=== PATIENT | female | born 1975 | race Caucasian/White ===

== ENCOUNTER 2019-09-10 13:15 | Emergency (ER) | payer MEDICARE, MEDICAID, SELFPAY ==
--- NOTE | ~2019-09-10 | XR_ITS ---
XR knee RT 3V 09/10/2019 14:48 INDICATION: Right knee pain PROCEDURE: 4 views right knee COMPARISON: 09/20/2017 FINDINGS: Fracture, dislocation or subluxation is not identified. No significant joint effusion. Ther e is irregularity to the patellar tendon with adjacent soft tissue swelling. No foreign bodies are i dentified. IMPRESSION: 1: Possible patellar tendon disruption. Recommend clinical correlation and follow-up examination with MRI as clinically indicated. Reviewed, dictated and finalized at location A. T SYSTEM DIRECTOR IMPRESSION: 1: Possible patellar tendon disruption. Recommend clinical correlation and foll ow-up examination with MRI as clinically indicated.
[2019-09-10 13:30] VITALS: BP 109/84; PULSE 101; RESP 18; TEMP 36.8; O2SAT 98
--- NOTE | 2019-09-10 14:31 | ED.LOWEXIN ---
HPI - Extremity Injury (Lower) General Chief Complaint: Extremity Injury, Lower Stated Complaint: Right Knee Pain Time Seen by Provider: 09/10/19 14:32 Source: patient Mode of arrival: ambulatory Limitations: no limitations History of Present Illness HPI Narrative: Tameka Nash is a 44 yo female with a PMH of HTN, breast cancer, high cholesterol, RENU, bipolar, who comes here with right knee pain and swelling on her right lateral patella. States is unknown if there is an injury; working many hours last week and was on her feet a lot. States she started having pain about 3 days ago Related Data Home Medications Medication Instructions Recorded Confirmed aripiprazole mg 09/10/19 baclofen mg 09/10/19 clonazepam 09/10/19 gabapentin 09/10/19 hydrochlorothiazide 09/10/19 hydrocodone-acetaminophen tablet 09/10/19 lamotrigine 09/10/19 montelukast mg 09/10/19 oxybutynin chloride mg PO 09/10/19 pantoprazole PO 09/10/19 Allergies Allergy/AdvReac Type Severity Reaction Status Date / Time codeine Allergy Mild Itching Verified 09/10/19 13:20 buspirone Allergy Unknown Hives Verified 09/10/19 13:42 egg Allergy Unknown Hives Verified 09/10/19 13:42 escitalopram Allergy Unknown Hives Verified 09/10/19 13:42 furosemide Allergy Unknown Hives Verified 09/10/19 13:42 morphine Allergy Unknown Hives Verified 09/10/19 13:42 strawberry Allergy Unknown Hives Verified 09/10/19 13:42 venlafaxine Allergy Unknown Hives Verified 09/10/19 13:42 bupropion AdvReac Unknown Vomiting Verified 09/10/19 13:42 Review of Systems Review of Systems: Narrative: CONSTITUTIONAL: Denies fever, chills, sweats. EYES: Denies visual changes, redness, discharge. ENT: Denies rhinorrhea, congestion, sore throat, otalgia. CARDIOVASCULAR: Denies chest pain, palpitations, edema. RESPIRATORY: Denies dyspnea, wheezing, cough GASTROINTESTINAL: Denies abdominal pain, nausea, vomiting, diarrhea. GENITOURINARY: Denies dysuria, hematuria, abnormal discharge SKIN: Denies rash or itching. NEUROLOGIC: Denies numbness, or focal weakness. PSYCHIATRIC: Denies anxiety or depression. right knee pain PMFSH Past Medical History Medical History Breast cancer Family History Family History Other Breast cancer Social History Social History (Updated 09/10/19 @ 14:39 by Melisa Wolff CNP) Smoking status: Current every day smoker Alcohol intake: current Gender identity (if verbalized by the patient): Female Exam Narrative: Exam Narrative: GENERAL: This is a well-nourished, well-developed patient, in mild distress. HEAD: normocephalic, atraumatic. EYES: Sclera clear/white. Vision is grossly intact. EARS: External ears normal, Hearing grossly intact. NOSE: External nose normal with no obvious nasal discharge, nares without redness, no rhinorrhea. THROAT: Mucous membranes moist, posterior pharynx clear. NECK: Neck supple, non-tender without lymphadenopathy, masses or thyromegaly. CARDIOVASCULAR: Regular rate and rhythm without murmurs, gallops, or rubs. RESPIRATORY: Coarse to auscultation. Breath sounds equal bilaterally. No wheezes, rales, or rhonchi. GASTROINTESTINAL: Abdomen soft, non-tender, nondistended. Bowel sounds are active. No hepato-splenomegaly, or palpable masses. No guarding. SKIN: warm, intact with no suspicious lesions or rash, good texture and turgor. NEURO: awake, alert, and oriented to person, place and time. There were no obvious focal neurologic abnormalities. EXTREMITIES: Normal range of motion. No edema. Unable to walk w R knee pain - flex to 90 degrees, not fully extend BACK: Nontender without deformity or crepitance. Course Course Emergency Course: Xray R knee- possible patellar rupture knee immobilizer, follow up with orthopedics Vital Signs Vital signs: Vital Signs Temperature 98.2 F 09/10/19 13:30 Pulse R
== END 2019-09-10 15:14 | disposition home or self-care (01) ==
PROVIDERS: Emergency Provider Nurse Practitioner; PCP Nurse Practitioner Family
DX: M25.561 Pain in right knee (principal); F17.200 Nicotine dependence, unspecified, uncomplicated; Z85.3 Personal history of malignant neoplasm of breast; I10 Essential (primary) hypertension; E78.00 Pure hypercholesterolemia, unspecified; F31.9 Bipolar disorder, unspecified
CPT/HCPCS: 73562; 99213; G0463; L1830

== ENCOUNTER 2020-06-19 06:54 | Outpatient (NON) | payer MEDICARE, MEDICAID, SELFPAY ==
[2020-06-19 23:36] LABS: SARS-CoV-2 RNA PCR Positive
== END 2020-06-19 06:55 ==
PROVIDERS: Visit Provider Student in an Organized Health Care Education/Training Program
DX: U07.1 COVID-19 (principal)
CPT/HCPCS: 87635; C9803; U0003

== ENCOUNTER → 2020-10-13 11:33 | Outpatient (CLI) | payer MEDICARE, MEDICAID, SELFPAY ==
--- NOTE | ~2020-10-13 | MR_ITS ---
EXAMINATION: MR lumbar spine wo con EXAM DATE: 10/13/2020 12:16 INDICATION: chronic bilateral low back pain lbp, mane arm tremors right leg numbness x1mo, no trauma . TECHNIQUE: Multi-sequential, multiplanar MR images of the lumbar spine were obtained without contrast . Sagittal T1, T2, T2 fat saturation images. Axial T2 weighted images. There is no prior study for comparison. FINDINGS: Small hemangioma within the L3 vertebral body. The vertebral body marrow is otherwise erasmo l in signal intensity. The conus medullaris terminates at the T12-L1 level and has normal signal inte nsity and morphology. The vertebral bodies are aligned in the AP dimension. Vertebral body and disc heights are well-maintained. There are no suspicious marrow signal abnormalities. Level by level evaluation: T12-L1: Disc does not extend beyond the endplate margin. Facet arthropathy: None. Neural foraminal stenosis: No stenosis. Central canal stenosis: No stenosis. L1-L2: Disc does not extend beyond the endplate margin. Facet arthropathy: Mild. Neural foraminal stenosis: No stenosis. Central canal stenosis: No stenosis. L2-L3: Disc does not extend beyond the endplate margin. Facet arthropathy: Mild to moderate. Neural foraminal stenosis: No stenosis. Central canal stenosis: No stenosis. L3-L4: Disc does not extend beyond the endplate margin. Facet arthropathy: Mild to moderate. Neural foraminal stenosis: No stenosis. Central canal stenosis: No stenosis. L4-L5: Disc does not extend beyond the endplate margin. Facet arthropathy: Mild to moderate. Neural foraminal stenosis: No stenosis. Central canal stenosis: No stenosis. L5-S1: Disc does not extend beyond the endplate margin. Facet arthropathy: Moderate left, mild to moderate right. Neural foraminal stenosis: No stenosis. Central canal stenosis: No stenosis. IMPRESSION: L5-S1 moderate left facet arthropathy, mild to moderate at the other levels. No stenosis. Reviewed, dictated and finalized at location A. IMPRESSION: L5-S1 moderate left facet arthropathy, mild to moderate at the othe r levels. No stenosis.
== END ==
PROVIDERS: Visit Provider Nurse Practitioner Family
DX: M54.42 Lumbago with sciatica, left side (principal); M54.41 Lumbago with sciatica, right side; G89.29 Other chronic pain
CPT/HCPCS: 72148

== ENCOUNTER 2024-10-12 13:34 | Outpatient (CLI) | payer MEDICARE, MEDICAID, SELFPAY ==
--- NOTE | ~2024-10-12 | US_ITS ---
EXAMINATION: US breast LT limited HISTORY: 49-year-old woman with both a family and personal history of breast cancer, post bilateral m astectomy in 2019 with implant reconstruction presents with left anterior lateral chest wall pain. High resolution limited left anterior lateral chest wall ultrasound was performed. COMPARISON: None. No imaging following bilateral mastectomy with implant reconstruction is available for comparison. FINDINGS: ULTRASOUND: Within the left anterior lateral chest wall, in the area of patient's discomfort (at the 4 to 6:00 po sition of the left breast, approximately 11 cm from the nipple) ultrasound demonstrates benign fibrog landular elements without a cystic or solid lesion of concern. IMPRESSION: No sonographic evidence to suggest the presence of recurrent or residual malignancy. BI-RADS Category 2: Benign finding(s). Cross-sectional imaging (preferably with contrast enhanced MRI) may be performed for further investig ation, if the patient is clinically able. Reviewed, dictated and finalized at location A. IMPRESSION: No sonographic evidence to suggest the presence of recurrent or residual malign cruzito. BI-RADS Category 2: Benign finding(s). Cross-sectional imaging (preferably with contrast enhanced MRI) may be performe d for further investigation, if the patient is clinically able.
--- OUTSIDE RECORDS SUMMARY | 2024-10-12 14:40 | XMS_ITS ---
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 none ATTENTION: good ORIENTATION: yes, person, place a nd time AFFECT: appropriate, full ra nge MOOD: sad, overwhelmed, st ressed, dysthymic SPEECH: clear, normal/R/V/R INSIGHT: fair JUDGEMENT: fair THOUGHT PROCESS: intact THOUGHT CONTENT: unremarkable PERCEPTUAL DISORDERS: no perceptual diso rder noted CURRENT SUICIDALITY: not presently (stro ng hx of SI and attempts though nothing since spring 2021) CURRENT HOMICIDALITY: none
--- OUTSIDE RECORDS SUMMARY | 2024-10-12 14:40 | XMS_ITS | Encounter Summary ---
Author Organization [facility] Address [address] [place] [address] Care Team Providers Care Institutional Research Director Name Role Phone Barbara Jackman CAREER TECHNICAL COUNSELOR Primary Care Provider [phone] Rachna Dumont APRN Unavailable Unavailab Patsy Gomez MD Unavailable [phone] Doni Fields MD Unavailable [phone] Reason for Visit * Reason Comments Lab (SCAN) Encounter Details Date Type Department Care Team (Latest Contact Info) Description 09/29/2024 Scan HEALTH INFO [facility] Scanned, [facility] Lab (SCAN) Social History Tobacco Use Types Packs/Day Years Used Date Smoking Tobacco: Former Cigarettes 1 36 1 988 - 2023 Smokeless Tobacco: Never Alcohol Use Standard Drinks/Week Comments Not Currently 0 (1 standard drink = 0.6 oz pur e alcohol) on average 3 drinks a year AUDIT-C Answer Date Recorded Frequency of Alcohol Consumption Monthly or less 06/07/2018 Average Number of Drinks Not on file 018 Frequency of Binge Drinking Not on file 05/20 PHQ-2 Answer Date Recorded Patient Health Questionnaire-2 Score 2 08/19/2024 Comments No Sex and Gender Information Value Date Recorded Sex Assigned at Female 11/14/2021 10:53 AM CDT Legal Sex Female 5:39 PM CDT Gender Identity Female 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 Sexual Orientation Straight 09/24/2021 11 :16 AM WOODWORKING MACHINE OPERATOR documented as of this encounter Plan of Treatment Not on file documented as of this encounter Procedures Procedure Name Priority Date/Time Associated Diagnosis Comments OUTSIDE LAB (SCAN ORDER) 09/29/2024 documented in this encounter Results * OUTSIDE LAB (SCAN ORDER) (09/29/2024) 09/29/2024 us Doc [facility] Scanned SCANNING Final Resu lt documented in this encounter Visit Diagnoses Not on filedocumented in this encounter Additional Health Concerns Assessment Noted Time PHQ-9 Depression Total Score: 14 025 11:33 AM WOODWORKING MACHINE OPERATOR documented as of this encounter Care Teams Institutional Research Director Relationship Specialty Start Date End Date Barbara Jackman FNP [address] [place] [address] PCP - General 12/04/16 Rachna Dumont, BLOCK INSPECTOR [address] [place] [address] Nurse Practitioner NURSE PRACTITIONER 05/10/19 Patsy Vogt MD [address] [place] [id number] Referring Physician RADIATION ONCOLOGY 05/10/19 Doni Fields MD [address] [place] [id number] ONCOLOGY 05/10/19 documented as of this encounter
--- OUTSIDE RECORDS SUMMARY | 2024-10-12 14:40 | XMS_ITS ---
Author Organization [facility] Address [address] [place] [address] Care Team Providers Care Manager Spanish Name Role Phone Piter Gonsales Primary Care Provider REASON FOR VISIT refill Social History Sex Assigned At : Social History Observation Description Sex Assigned At Female Encounters Encounter Location Date Provider Diagnosis [address] [place] [address] 09/01/2024 Piter Gonsales Plan Of Treatment No Information Progress Notes * Tameka MACIASDOB:1975 (49 yo F)Acc No.[id number]:09/01/2024 Patient: Tameka MEZA :1975 A ge:49 Y S ex:Female Address:[address] [place] [address] A, [place], [address] * true * Date: Generated for Mine engel/Nika/eTransmitting on: 0 10/12/2024 02:40 PM CDT
--- OUTSIDE RECORDS SUMMARY | 2024-10-12 14:40 | XMS_ITS | Clinical Summary ---
Author Organization [facility] Address [facility] [place] [address] Care Team Providers Care Ornamenter Hand Name Role Phone Barbara Jackman NP Primary Care Provider [phone] Allergies Active Allergy Reactions Criticality Noted Date Comments Bupropion Rash Medium 05/27/2016 Buspirone Rash,Nausea only Medium 05/27/2016 Codeine Rash Medium 10/17/2019 Escitalopram Hives Medium 05/27/2016 Furosemide Other (See comments) Medium 05/27/2016 Water retention Latex Rash Medium 10/25/2018 Mirtazapine Rash Medium 07/22/2017 Morphine Swelling,Urticaria,V omit ing Medium 05/27/2016 Quetiapine Hives,Other (See comments),Urticaria Medium 07/22/2017 Excessive sleepiness Venlafaxine Rash,Urticaria Medium 05/27/2016 Medications clonazePAM (KlonoPIN) 0.5 mg tabletIndications: Teresa associated with Bipolar Disorder, Adjunct Take 0.25 mg by mouth daily before breakfast 9 Active dicyclomine (BENTYL) 20 mg tablet Take 20 mg by mouth 4 (four) times a day as needed (ibs) 9 Active baclofen (LIORESAL) 20 mg tabletIndications: Muscle Spasticity of Spinal Origin Take 20 mg by mouth 3 (three) times a day 9 Active fluticasone propionate (FLONASE) 50 mcg/actuation nasal spray Administer 2 sprays into affected nostril(s) as needed for rhinitis Active gabapentin (NEURONTIN) 300 mg capsuleIndications :Neuropathic Pain Take 300 mg by mouth 3 (three) times a day 3 9 Active lamoTRIgine (LaMICtal) 200 mg tabletIndications: Bipolar Disorder in Remission Take 200 mg by mouth 2 (two) times a day [address] (PROTONIX) 40 mg EC tabletIndications: Treatment of Non-Bleeding Gastric Disorder Take 40 mg by mouth every morning 9 Active SUMAtriptan (IMITREX) 100 mg tabletIndications: Migraine Take 100 mg by mouth once as needed for migraine 9 Active varenicline (CHANTIX STARTING MONTH BOX) 0.5 mg (11)- 1 mg (42) tabletIndications: Smoking Cessation Take 0.5 mg by mouth 2 (two) times a day 9 Active albuterol HFA (VENTOLIN HFA) 90 mcg/actuation inhaler Inhale 1 puff every 6 (six) hours as needed for wheezing or shortness of breath 9 Active ARIPiprazole (ABILIFY) 15 mg tabletIndications: Bipolar Disorder in Remission Take 15 mg by mouth nightly Active ibuprofen (ADVIL,MOTRIN) 800 mg tablet Take 800 mg by mouth every 6 (six) hours as needed for pain Active atorvastatin (LIPITOR) 10 mg tabletIndications: hyperlipidemia Take 10 mg by mouth nightly 9 Active cetirizine (ZyrTEC) 10 mg tabletIndications: Allergic Conjunctivitis,All ergic Rhinitis Take 10 mg by mouth every morning Active naloxone (Narcan) 4 mg/actuation spray,non-aerosol Administer 1 spray into affected nostril(s) as needed for opioid reversal 9 Active oxybutynin XL (DITROPAN-XL) 10 mg 24 hr tabletIndications: Urinary Urge Incontinence Take 10 mg by mouth nightly 0 Active ARIPiprazole (ABILIFY) 5 mg tabletIndications: Bipolar Disorder in Remission Take 5 mg by mouth daily before breakfast 0 Active hydroCHLOROthiazid e (HYDRODIURIL) 12.5 mg tabletIndications: hypertension Take 12.5 mg by mouth every morning 9 Active ondansetron ODT (ZOFRAN-ODT) 4 mg disintegrating tablet Take 4 mg by mouth every 8 (eight) hours as needed for nausea 9 Active fluticasone furoate-vilanteroL (Breo Ellipta) 200-25 mcg/dose diskus inhalerIndications :Maintenance Therapy for Asthma Inhale 1 puff every morning Rinse mouth with water after use. Do not swallow. Active montelukast (SINGULAIR) 10 mg tabletIndications: Maintenance Therapy for Asthma Take 10 mg by mouth nightly 0 Active clonazePAM (KlonoPIN) 0.5 mg tablet Take 0.5 mg by mouth nightly Active clonazePAM (KlonoPIN) 0.25 mg disintegrating tablet Take 0.25 mg by mouth daily as needed for anxiety Active oxyCODONE (ROXICODONE) 5 mg immediate release tabletIndications: Pain Take 1 tablet (5 mg total) by mouth every 4 (four) hours as needed for pain 15 tablet 0 Active docusate sodium (COLACE) 100 mg capsuleIndications :constipation Take 1 capsule (100 mg total) by mouth 2 (two) times a day 60 capsule 0 Active HYDROcodone-acetam inophen (NORCO) 10-325 mg per tablet Take 1 tablet by mouth every 6 (six) hours as needed 0 Active methylPREDNISolone (MEDROL DOSEPACK) 4 mg Dosepack 0 Active orphenadrine ER (NORFLEX) 100 mg 12 hr tablet Take 100 mg by mouth 2 (two) times a day as needed 0 Active TiZANidine (ZANAFLEX) 4 mg capsule 0 Active lurasidone (LATUDA) 40 mg tablet Take 40 mg by mouth 0 Active Latuda 40 mg tablet 0 Active nitrofurantoin monohydrate (MACROBID) 100 mg capsule 0 Active mupirocin (BACTROBAN) 2 % ointment Apply topically 2 (two) times a day 22 g 0 Active azithromycin (ZITHROMAX) 250 mg tablet 0 Active hydrOXYzine (ATARAX) 25 mg tablet 1 Active nicotine (NICODERM CQ) [address] 14 mg on the skin daily 1 Active nicotine polacrilex (NICORETTE) 2 mg gum Take 2 mg by mouth as needed 1 Active prazosin (MINIPRESS) 2 mg capsule Take 2 mg by mouth nightly 1 Active prazosin (MINIPRESS) 2 mg capsule 1 Active predniSONE (DELTASONE) 20 mg tablet Take two tablets once daily for 4 days and one tablet once daily for 3 days 1 Active predniSONE (DELTASONE) 20 mg tablet 1 Active Active Problems Problem Noted Date Diagnosed Date Acute cystitis without hematuria 04/06/2020 Chronic midline low back pain without sciatica 0 04/06/2020 Family history of diabetes mellitus 04/06/2020 Prediabetes 04/06/2020 Osteochondral lesion 02/28/2020 Morbid (severe) obesity due to excess calories 0 01/03/2020 History of breast cancer 01/02/2020 Overview (01/02/2020): Added automatically from request for surgery [id number] Cyst of right breast 09/23/2019 Overview (09/23/2019): Added automatically from request for surgery [id number] Dysuria 07/13/2019 Urinary problem 07/13/2019 Numbness of upper extremity 07/13/2019 Allergic rhinitis 05/25/2019 Cancer associated pain 05/25/2019 Abnormal breast biopsy 05/03/2019 Ductal carcinoma in situ (DCIS) of right breast 05/02/2019 Malignant neoplasm of breast 04/19/2019 Overview (11/22/2019): says she will have surgery then radiation treatments says she will have surgery then radiation treatments says she will have surgery then radiation treatments Abnormal mammogram of right breast 03/09/2019 Boil of left foot 03/09/2019 Vitamin B 12 deficiency 03/09/2019 Encounter for smoking cessation counseling 01/06 Female bladder prolapse 01/06/2019 Bipolar disorder 10/14/2018 Fracture of unspecified tars al bone(s) of right foot, initial encounter for closed fracture 10/05/2018 Urge incontinence of urine 10/05/2018 High blood pressure 06/07/2018 Borderline hypertension 06/07/2018 Boils 05/11/2018 Adult BMI 33.0-33.9 kg/sq m 03/28/2018 Fracture of third metatarsal bone of left foot 0 03/24/2018 Right foot pain 03/23/2018 Hypertriglyceridemia 01/28/2018 History of hysterectomy 01/19/2018 Vaginal bleeding, abnormal 01/19/2018 Panic attack as reaction to stress 12/29/2017 Environmental and seasonal allergies 11/24/2017 Low vitamin D level 11/24/2017 Hearing decreased, unspecified laterality 2017 Wrist pain 07/21/2017 Bulging of cervical intervertebral disc 07/03/20 17 Tear of meniscus of right knee 06/23/2017 Right ankle injury 06/23/2017 Anxiety 03/31/2017 Chronic nausea 02/26/2017 Chronic vomiting 02/26/2017 Osteoarthrosis 01/01/2017 Neck pain 12/22/2016 Migraines 11/28/2016 Nicotine dependence 07/29/2016 GERD (gastroesophageal reflux disease) 6 COPD (chronic obstructive pulmonary disease) 02/2016 Asthma 05/27/2016 Inflammatory liver disease 05/27/2016 Sleep disorder 05/27/2016 Immunizations Immunization Administration Dates Next Due Influenza, Quadrivalent, Ingrid l Culture-based MDCK, Preservative Free, Antibiotic Free, Intramuscular 05/04/2019 Influenza, Quadrivalent, Spl it, Preservative Free, Intramuscular 04/06/2020 Influenza, Unspecified 04/29/2018,05/08/2017, Pneumococcal Conjugate PCV 13 06/07/2018 Tdap 06/07/2018 Surgical History Surgery Date Site/Laterality Comments HYSTERECTOMY 07/20/2005 - 07/19/2006 APPENDECTOMY 07/20/2005 - 07/19/2006 CHOLECYSTECTOMY 07/20/2005 - 07/19/2006 CYST REMOVAL 07/20/2003 - 07/19/2004 COLONOSCOPY 07/20/2017 - 07/19/2018 BREAST LUMPECTOMY 07/20/2018 - 07/19/2019 Right DCIS; re-excision as well BREAST BIOPSY 07/20/2018 - 07/19/2019 Right DCIS BREAST LUMPECTOMY 07/20/2018 - 07/19/2019 Right Medical History Medical History Date Comments Anxiety Depression Asthma Arthritis Overweight Hypertension KIMBER (obstructive sleep apnea) GERD (gastroesophageal reflux disease) Chronic nausea 02/26/2017 Family History Medical History Relation Name Comments Prostate cancer Father Breast cancer Mother Colon cancer Paternal Grandmother Anesthesia problems Neg Hx Relation Name Status Comments Father Mother Paternal Grandmother Social History Tobacco Use Types Packs/Day Years Used Date Smoking Tobacco: Every Day Cigarettes 0.5 32.2 Started: 1992 Smokeless Tobacco: Never Alcohol Use Standard Drinks/Week Comments Not Currently 0 (1 standard drink = 0.6 oz pur e alcohol) rare Comments No Sex and Gender Information Value Date Recorded Sex Assigned at Not on file 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 Gender Identity Not on file Sexual Orientation Not on file Obstetrics History Last Filed Vital Signs Vital Sign Reading Time Taken Comments Blood Pressure 131/87 01/30/2020 10:50 AM CDT Pulse 95 01/30/2020 10:50 AM CDT Temperature 36.2 C (97.2 F) 01/30/2020 10:00 AM CDT Respiratory Rate 15 01/30/2020 10:50 AM CDT Oxygen Saturation 95% 01/30/2020 10:50 AM CDT Inhaled Oxygen Concentration - - Weight 119.7 kg (264 lb) 01/17/2020 4:30 PM CDT Height 170.2 cm (5' 7 ) 01/17/2020 4:30 PM CDT Body Mass Index 41.35 01/17/2020 4:30 PM CDT Plan of Treatment Health Maintenance Due Date Last Done Comments Breast Cancer Screening-Mammogram 1975 Colon Cancer Screening-Colonoscopy 1975 Depression Screening 1975 Hepatitis C Screening 1975 Hepatitis B Screening 1993 Regular Well Visit/Exam 18-64 1993 Pneumococcal vaccine <65 (2 of 2 - PPSV23) 08/02/2018 06/07/2018 Covid-19 Vaccine (3 - 2023-2 5 season) 2024 11/12/2020, 10/22/2020 Influenza Vaccine (#1) 2024 , 05/27/2022, 09/27/2021, Additional history exists DTaP/Tdap/Td Vaccine (2 - Td or Tdap) 06/07/2028 06/07/2018 Medical Devices Implanted Type Area Quantitative Analyst Device Identifier Shelf Expiration Date Model / Serial / Lot [employer] [id number] Alloderm Select 16x6cm Allograft Regenerative Thk.4-1.6mm Medium - [id number] - [id number] Implanted:Qty: 1 on 10/17/2019 by Maxwell Kelsey MD at [facility] Left: Breast [employer] 04/18/2021 [id number] / [id number] / [id number] [employer] [id number] Alloderm Select 16x6cm Allograft Regenerative Thk.4-1.6mm Medium - [id number]$ - [id number] Implanted:Qty: 1 on 10/17/2019 by Maxwell Kelsey MD at [facility] Right: Breast [employer] 04/18/2021 [id number] / [id number]$ / [id number] [employer] 405x-Hn-10-T Implant Mammary Natrelle Te Smooth 892v-An-55-T With Fourte - [id number] - [id number] Implanted:Qty: 1 on 10/17/2019 by Maxwell Kelsey MD at [facility] Right: Breast [employer] [id number] 04/18/2024 133S-MX-15 -T / [id number] / [employer] 904a-Qs-02-T Implant Mammary Natrelle Te Smooth 390e-Iu-00-T With Fourte - [id number] - [id number] Implanted:Qty: 1 on 10/17/2019 by Maxwell Kelsey MD at [facility] Left: Breast [employer] [id number] 11/30/2023 133S-MX-15 -T / [id number] / [employer] Ssx-800 Natrelle Inspira Smooth Xfull Profile Implant 800cc Breast - [id number] - [id number] Implanted:Qty: 1 on 01/30/2020 by Maxwell Kelsey MD at [facility] Right: Breast [employer] [id number] 11/10/2023 SSX-800 / [id number] / [id number] [employer] Ssx-800 Natrelle Inspira Smooth Xfull Profile Implant 800cc Breast - [id number] - [id number] Implanted:Qty: 1 on 01/30/2020 by Maxwell Kelsey MD at [facility] Left: Breast [employer] [id number] 06/25/2024 SSX-800 / [id number] / [id number] Insurance [employer] MEDICARE GOLD IDPA [facility] [place] [address] [place] [address] [place] [facility] Advance Directives For more information, please contact: [phone] Documents on File Type Date Recorded Patient Control And Recovery Combat Rescue Expl anation ADVANCE DIRECTIVE 09/07/2019 8:37 AM Power of Direct Customer Service Representative-Medical Care Teams Ornamenter Hand Relationship Specialty Start Date End Date Barbara Jackman NP [address] [place] [id number] PCP - General Nurse Practitioner 05/04/19
--- OUTSIDE RECORDS SUMMARY | 2024-10-12 14:40 | XMS_ITS | Clinical Summary ---
Author Organization [facility] Address [address] 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 This disclosure is being madepursuant to the Care Everywhere program and may not contain all information available regarding this patient. Last updated 18.[facility] Allergies Active Allergy Reactions Criticality Noted Date Comments Bupropion Rash,Unknown Medium 05/27/2016 Buspirone Rash,Vomiting,Unknown Medium 05/27/2016 Skin rash, nausea Skin rash, nausea Escitalopram Urticaria,Rash,Unknown Medium 05/27/2016 Hives Hives Hives Hives Hives Furosemide Other,Urticaria Medium 05/27/2016 makes me retain water makes me retain water Says it does the opposite in me makes me retain water Other reaction(s): Other (See comments) makes me retain water makes me retain water makes me retain water Says it does the opposite in me makes me retain water Says it does the opposite in me makes me retain water Latex Rash,Unknown Medium 10/25/2018 Mirtazapine Rash,Unknown Medium 07/22/2017 Morphine Urticaria,Swelling,U nkno wn,Vomiting Medium 05/27/2016 hives hives Swelling all over hives Swelling all over hives hives hives Swelling all over hives Swelling all over hives Quetiapine Urticaria,Other,Unknown Medium 07/22/2017 hives hives Excessive sleepiness, even with the smallest dose hives Other reaction(s): Other (see comment) Excessive sleepiness, even with the smallest dose hives hives hives hives Excessive sleepiness, even with the smallest dose hives Excessive sleepiness, even with the smallest dose hives Venlafaxine Urticaria,Rash,Unknown Medium 05/27/2016 Medications * Be aware that medications may not be up to date on this document. Alwaysverify current medications with the patient. Medication Sig Dispensed Refills Start Date End Date Status fluticasone propionate (FLONASE) 50 MCG/ACT nasal spray [place] 2 sprays into each nostril once daily Active montelukast (SINGULAIR) 10 MG tablet 11 03/16/2019 Active naloxone HCl (NARCAN) 4 MG/0.1ML nasal spray 01/31/2019 Active pantoprazole EC (PROTONIX) 40 MG tablet 5 03/22/2019 Active SUMAtriptan (IMITREX) 100 MG tablet 04/05/2019 Active hydroCHLOROthiazid e (HYDRODIURIL) 12.5 MG 0 02/21/2019 Active Elastic Bandage MISC Use 1 Units 11/29/2018 Active VENTOLIN HFA 108 (90 Base) MCG/ACT inhaler 04/05/2019 Active atorvastatin (LIPITOR) 10 MG tablet Take 10 mg by mouth daily with breakfast 04/14/2019 Active cetirizine (ZYRTEC) 10 MG tablet Take 10 mg by mouth once daily Active ondansetron, disintegrating, (ZOFRAN ODT) 4 MG tablet 04/05/2019 Active fluticasone-vilant barrett (BREO ELLIPTA) 200-25 MCG/INH inhaler Inhale 1 puff by mouth once daily Active nicotine (NICODERM CQ) 14 MG/24HR patchIndications:N icotine Dependence Apply 1 (one) patch to skin once daily Reasons: Nicotine Addiction 30 patch 08/06/2020 Active Additional Information Patient not taking.Reported on 09/27/2020 nicotine polacrilex (NICORETTE) 2 MG gumIndications:Duane otine Dependence Take 1 (one) Each by mouth as needed for Smoking Cessation Gum should be slowly chewed until a peppery taste emerges, then parked between cheek and gum to facilitate nicotine absorption. Avoid eating or drinking for 15 minutes before and during chewing gum. Reasons: Nicotine Addiction 50 Each 08/05/2020 Active Additional Information Patient not taking.Reported on 09/27/2020 LATUDA 120 MG tablet TAKE 1 TABLET BY MOUTH DAILY WITH BREAKFAST FOR 90 DAYS 90 tablet 02/10/2022 Active gabapentin (NEURONTIN) 300 MG capsule TAKE ONE CAPSULE BY MOUTH TWICE DAILY AND 2 CAPSULES AT BEDTIME. 360 capsule 02/10/2022 Active Active Problems Problem Noted Date Diagnosed Date Bipolar II disorder 08/02/2020 Cyst of right breast 09/23/2019 Overview (09/29/2019): Added automatically from request for surgery [id number] Dysuria 07/13/2019 Numbness of upper extremity 07/13/2019 Urinary problem 07/13/2019 Cancer associated pain 05/25/2019 Allergic rhinitis 05/25/2019 Abnormal breast biopsy 05/03/2019 Ductal carcinoma in situ (DCIS) of right breast 05/02/2019 Malignant neoplasm of breast 04/19/2019 Overview (09/29/2019): says she will have surgery then radiation treatments says she will have surgery then radiation treatments Abnormal mammogram of right breast 03/09/2019 Boil of left foot 03/09/2019 Vitamin B 12 deficiency 03/09/2019 Encounter for smoking cessation counseling 01/06 Female bladder prolapse 01/06/2019 Borderline personality disorder 10/14/2018 Bipolar disorder 10/14/2018 Fracture of unspecified tars al bone(s) of right foot, initial encounter for closed fracture 10/05/2018 Urge incontinence of urine 10/05/2018 Borderline hypertension 06/07/2018 High blood pressure 06/07/2018 Boils 05/11/2018 Adult BMI 33.0-33.9 kg/sq m 03/28/2018 Fracture of third metatarsal bone of left foot 0 03/24/2018 Right foot pain 03/23/2018 Hyperlipidemia 01/28/2018 History of hysterectomy 01/19/2018 Vaginal bleeding, abnormal 01/19/2018 Panic attack as reaction to stress 12/29/2017 Kidney dysfunction 12/15/2017 Environmental and seasonal allergies 11/24/2017 Low vitamin D level 11/24/2017 Hearing decreased, unspecified laterality 2017 Wrist pain 07/21/2017 Bulging of cervical intervertebral disc 07/03/20 17 Bunion, right 06/23/2017 Right ankle injury 06/23/2017 Insomnia 05/08/2017 Anxiety 03/31/2017 Chronic nausea 02/26/2017 Chronic vomiting 02/26/2017 Osteoarthrosis 01/01/2017 Neck pain 12/22/2016 Migraines 11/28/2016 Nicotine dependence 07/29/2016 Asthma 05/27/2016 COPD (chronic obstructive pulmonary disease) 02/2016 GERD (gastroesophageal reflux disease) 6 Inflammatory liver disease 05/27/2016 Sleep disorder 05/27/2016 Resolved Problems Problem Noted Date Diagnosed Date Resolved Date Suicide 09/29/2018 10/14/2018 Immunizations Name Administration Dates Next Due Covid [employer] primary monoval ent 12+ yr 0.3mL Purple cap 11/12/2020,10/22/2020 INFLUENZA VACCINE 05/04/2019, 8,05/08/2017,2015 INFLUENZA VACCINE, CELL CULT URE, QUADR. (FLUCELVAX QUADRIVALENT; 6MO+) (CCIIV4) 05/04/2019 Pneumococcal Pcv13 Conj 06/07/2018 TDAP (7yrs+) 06/07/2018,06/07/2018 Social History Tobacco Use Types Packs/Day Years Used Date Smoking Tobacco: Every Day Cigarettes Smokeless Tobacco: Never Tobacco Cessation:Ready to Q uit: No; Counseling Given: Yes Alcohol Use Standard Drinks/Week Comments Yes 0 (1 standard drink = 0.6 oz pur e alcohol) rare PHQ-2 Answer Date Recorded PHQ2 TOTAL SCORE 1 11/20/2021 Sex and Gender Information Value Date Recorded Sex Assigned at Female 10/19/2020 1:28 AM CDT Gender Identity Female 10/19/2020 1:28 AM CDT Sexual Orientation Straight 10/19/2020 1: 28 AM CDT Last Filed Vital Signs Vital Sign Reading Time Taken Comments Blood Pressure 101/71 03/27/2021 4:00 PM CDT Pulse 92 03/27/2021 4:00 PM CDT Temperature 36.3 C (97.3 F) 08/05/2020 8:13 AM FIRE EXTINGUISHER TECHNICIAN Respiratory Rate 18 08/05/2020 8:13 AM FIRE EXTINGUISHER TECHNICIAN Oxygen Saturation 100% 08/05/2020 8:13 AM FIRE EXTINGUISHER TECHNICIAN Inhaled Oxygen Concentration - - Weight 112.9 kg (249 lb) 03/27/2021 4:00 PM CDT Height 170.2 cm (5' 7 ) 08/02/2020 3:53 PM FIRE EXTINGUISHER TECHNICIAN Body Mass Index 39 08/02/2020 3:53 PM FIRE EXTINGUISHER TECHNICIAN Plan of Treatment Health Maintenance Due Date Last Done Comments COLOGUARD (AGES 45-75) - COLON CA SCREENING 1975 COLON MONITORING 1975 COLONOSCOPY - COLON CA SCREENING 1975 CT COLONOGRAPHY - COLON CA SCREENING 1975 Colorectal Cancer Screening 1975 FIT - COLON CA SCREENING 1975 FLEX SIG - COLON CA SCREENING 1975 PAP SMEAR 1975 HEPATITIS C SCREENING 01/11/1993 HEPATITIS B VACCINE (1 of 3 - 19+ 3-dose series) 1994 PNEUMOCOCCAL VACCINE (2 of 2 - PPSV23) 08/02/2018 06/07/2018 MAMMOGRAM 04/20/2021 04/20/2019 COVID-19 VACCINE (3 - season) 2024 11/12/2020, 10/22/2020 INFLUENZA VACCINE (#1) 2024 , 08/05/2021, 04/06/2020, Additional history exists MEDICARE AWV CALENDAR YEAR 2024 ZOSTER VACCINE (1 of 2) 2025 DTAP/TDAP/TD VACCINES (3 - Td or Tdap) 06/07/2028 06/07/2018, 06/07/2018 HIV SCREENING Completed 08/02/2020 HIB VACCINE Aged Out No longer eligi ble based on patient's age to complete this topic HPV VACCINE Aged Out No longer eligi ble based on patient's age to complete this topic MENINGOCOCCAL (Group B) VACCINE SHARED DECISION-MAKING Aged Out No longer eligible based on patient's age to complete this topic MENINGOCOCCAL GROUPS A/C/Y/W VACCINE Aged Out No longer eligible based on patient's age to complete this topic Procedures Procedure Name Priority Date/Time Associated Diagnosis Comments HIV-1 HIV-2 ANTIGEN/ANTIBODY STAT 08/02/2020 5:09 PM FIRE EXTINGUISHER TECHNICIAN from Last 3 Months or Most Recently Relevant to Health Maintenance Results * HIV-1 HIV-2 ANTIGEN/ANTIBODY (08/02/2020 5:09 PM FIRE EXTINGUISHER TECHNICIAN) HIV Antigen/Antibod y 1 & 2 Non-reacti ve Non-react sally 08/02/2020 6:13 PM FIRE EXTINGUISHER TECHNICIAN [facility] Comment:Neither HIV-1 p24 An tigen nor HIV-1/HIV-2 Antibodies are detected. Blood BLOOD SPECIMEN / Unknown Venipuncture / Unknown 08/02/2020 5:09 PM FIRE EXTINGUISHER TECHNICIAN 08/02/2020 5:40 PM FIRE EXTINGUISHER TECHNICIAN Shabbir Peace MD LAB - HEMATOLOGY ORD ERABLES [facility] [address] [place] [address], [facility] [phone] from Last 3 Months or Most Recently Relevant to Health Maintenance Advance Directives Documents on File Type Date Recorded Patient Corporate Manager Expl anation Adv Directive/Living Will/POA 03/28/2021 8:58 AM STATUTORY SHORT FORM POA FOR HLTHCARE * Full Code (Latest Code Status on File) Date Activated Date Inactivated Comments 08/03/2020 2:41 AM 08/05/2020 2:57 PM * Full Code Date Activated Date Inactivated Comments 09/29/2018 11:46 AM 10/03/2018 7:28 PM Care Teams Elementary Spanish Teacher Relationship Specialty Start Date End Date Barbara Jackman APRN-MARLENE [address] [place] [id number] PCP - General Nurse Practitioner 09/29/18
--- OUTSIDE RECORDS SUMMARY | 2024-10-12 14:40 | XMS_ITS | Clinical Summary ---
Author Organization [facility] Address Formerly [facility] [place] [address] Care Team Providers Care Flatwork Folder Name Role Phone Barbara Jackman LORAINE Primary Care Provider [phone] Rachna Dumont APRN Unavailable Unavailab Patsy Gomez MD Unavailable Doni Fields MD Unavailable [phone] Allergies Active Allergy Reactions Criticality Noted Date Comments Bupropion Rash,Vomiting Medium 05/27/2016 Buspirone Rash,Vomiting Medium 05/27/2016 Codeine Rash Medium 10/17/2019 Escitalopram Rash,Vomiting Medium 05/27/2016 Furosemide Other (see comment) Low 05/27/2016 Says it does the opposite in me makes me retain water Latex Rash Low 10/25/2018 Mirtazapine Rash Low 07/22/2017 Morphine Hives,Swelling,Vomiting High 05/27/2016 Swelling all over Quetiapine Other (see comment) Medium 07/22/2017 Excessive sleepiness, even with the smallest dose hives Venlafaxine Rash Low 05/27/2016 Medications cetirizine 10 MG tablet Take 1 tablet (10 mg total) by mouth daily. Active docusate sodium 100 MG capsule Take 1 capsule (100 mg total) by mouth 2 (two) times daily. 020 Active SUMAtriptan 100 MG tabletIndications :Migraine without status migrainosus, not intractable, unspecified migraine type Take 1 tablet (100 mg total) by mouth as needed for Migraine. 30 tablet 1 021 Active FLUTICASONE PROPIONATE 50 MCG/ACT nasal sprayIndications: Allergic rhinitis, unspecified seasonality, unspecified trigger SHAKE LIQUID AND USE 1 SPRAY IN EACH NOSTRIL TWICE DAILY 16 g 5 021 Active EPINEPHrine (EPIPEN) 0.15 MG/0.15ML injectionIndicati ons:Hx of anaphylaxis Inject 0.15 mLs (0.15 mg total) into the muscle as needed for Anaphylaxis. 2 each 022 Active NEBULIZER DEVICE, DME,Indications:P ulmonary emphysema, unspecified emphysema type (CMS/HCC HHS/HCC),[place] tent asthma without complication, unspecified asthma severity (HHS/HCC) Take 1 Device by nebulization every 4 (four) hours as needed (wheezing). 1 Device Active NEBULIZER/ADULT MASK KIT, DME,Indications:P ulmonary emphysema, unspecified emphysema type (CMS/HCC HHS/HCC),[place] tent asthma without complication, unspecified asthma severity (HHS/HCC) To use for albuterol nebulizer treatments every 4-6 hours prn wheezing 1 kit 1 022 Active Lurasidone HCl 120 MG TabIndications:Bi polar disorder, current episode mixed, moderate (CMS/HCC HHS/HCC),Borderli ne personality disorder (CMS/HCC HHS/HCC) Take 120 mg by mouth daily. 30 tablet 2 022 Active lamoTRIgine (LAMICTAL) 200 MG tabletIndications :Bipolar disorder, current episode mixed, moderate (CMS/HCC HHS/HCC),Borderli ne personality disorder (CMS/HCC HHS/HCC) Take 1 tablet (200 mg total) by mouth 2 (two) times daily. 30 tablet 2 022 Active fluticasone furoate-vilantero l (BREO ELLIPTA) 200-25 MCG/ACT inhalerIndication s:Persistent asthma without complication, unspecified asthma severity (HHS/HCC) INHALE 1 PUFF INTO THE LUNGS DAILY 180 each 3 022 Active famotidine (PEPCID) 40 MG tablet 022 Active prazosin (MINIPRESS) 5 MG capsule Active pantoprazole EC (PROTONIX) 40 MG tabletIndications :Gastroesophageal reflux disease TAKE 1 TABLET(40 MG) BY MOUTH DAILY 30 tablet 11 023 Active Insulin Pen Needle (TECHLITE PEN NEEDLES) 32G X 6 MM MiscIndications:M orbid (severe) obesity due to excess calories (CMS/HCC),Prediab etes USE DIRECTED DAILY WITH SAXENDA 100 each 1 023 Active potassium chloride CR (K-TAB) 20 MEQ tabletIndications :Hypokalemia Take 1 tablet (20 mEq total) by mouth daily. 30 tablet 024 Active lubiprostone (AMITIZA) 8 MCG capsule Take 1 capsule (8 mcg total) by mouth 2 (two) times daily with meals. 024 Active atomoxetine (STRATTERA) 25 MG capsule Take 1 capsule (25 mg total) by mouth. 024 Active ibuprofen (MOTRIN) 800 MG tabletIndications :Bulging of cervical intervertebral disc Take 1 tablet (800 mg total) by mouth every 8 (eight) hours as needed. FOR PAIN 60 tablet 024 Active magnesium oxide (MAG-OX) 250 MG tablet Take 1 tablet (250 mg total) by mouth daily. Active vitamin B-12 (CYANOCOBALAMIN) (CYANOCOBALAMIN) 1000 mcg tablet Take 1 tablet (1,000 mcg total) by mouth 2 (two) times a week. Active Vitamin D3 125 mcg Tab Take 1 tablet (125 mcg total) by mouth daily. Active naloxone (NARCAN) 4 MG/0.1ML nasal sprayIndications: Opioid use 1 spray by Nasal route as needed for Opioid reversal. 2 each 1 024 Active atorvastatin (LIPITOR) 10 MG tabletIndications :Hyperlipidemia, unspecified hyperlipidemia type TAKE 1 TABLET(10 MG) BY MOUTH EVERY NIGHT AT BEDTIME 90 tablet 3 024 Active haloperidol (HALDOL) 0.5 MG tablet 024 Active hydroCHLOROthiazi de (MICROZIDE) 12.5 MG tabletIndications :Essential hypertension Take 1 tablet (12.5 mg total) by mouth every morning. 90 tablet 3 024 Active tirzepatide (MOUNJARO) 7.5 MG/0.5ML injectionIndicati ons:Diabetes Mellitus Inject 7.5 mg into the skin every 7 days. Indications: Diabetes 6 mL 1 024 Active ondansetron (ZOFRAN-ODT) 4 MG disintegrating tabletIndications :Chronic nausea DISSOLVE 1 TABLET(4 MG) ON THE TONGUE EVERY 8 HOURS NEEDED FOR NAUSEA 30 tablet 2 024 Active baclofen (LIORESAL) 20 MG tabletIndications :Muscle spasm TAKE 1 TABLET(20 MG) BY MOUTH THREE TIMES DAILY 90 tablet 5 025 Active clonazePAM (KLONOPIN) 1 MG tabletIndications :Anxiety,Panic attack as reaction to stress TAKE 1 TABLET BY MOUTH TWICE A DAY NEEDED FOR ANXIETY 60 tablet 2 025 Active HYDROcodone-aceta minophen (NORCO) 10-325 MG tabletIndications :Chronic Pain Take 1 tablet by mouth every 8 (eight) hours as needed for Pain. Indications: Chronic Pain 90 tablet 025 Active montelukast (SINGULAIR) 10 MG tabletIndications :Environmental and seasonal allergies TAKE 1 TABLET(10 MG) BY MOUTH EVERY NIGHT AT BEDTIME 90 tablet 1 025 Active zolpidem (AMBIEN) 10 MG tabletIndications :Insomnia, unspecified type TAKE 1 TABLET(10 MG) BY MOUTH EVERY NIGHT NEEDED FOR SLEEP 30 tablet 1 025 Active MYRBETRIQ 50 MG 24 hr tabletIndications :OAB (overactive bladder) TAKE 1 TABLET(50 MG) BY MOUTH DAILY 30 tablet 2 025 Active montelukast (SINGULAIR) 10 MG tabletIndications :Environmental and seasonal allergies TAKE 1 TABLET(10 MG) BY MOUTH EVERY NIGHT AT BEDTIME 90 tablet 3 024 2024 Discontinued mirabegron ER (MYRBETRIQ) 50 MG 24 hr tabletIndications :OAB (overactive bladder) TAKE 1 TABLET(50 MG) BY MOUTH DAILY 90 tablet 024 2024 Discontinued clonazePAM (KLONOPIN) 1 MG tabletIndications :Anxiety,Panic attack as reaction to stress TAKE 1 TABLET BY MOUTH TWICE A DAY NEEDED FOR ANXIETY 60 tablet 2 024 2024 Discontinued zolpidem (AMBIEN) 10 MG tabletIndications :Insomnia, unspecified type TAKE 1 TABLET(10 MG) BY MOUTH EVERY NIGHT NEEDED FOR SLEEP 30 tablet 2 024 2024 Discontinued HYDROcodone-aceta minophen (NORCO) 10-325 MG tabletIndications :Chronic Pain Take 1-2 tablets by mouth every 8 (eight) hours as needed for Pain. 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 ([facility]) 08/19/2024 Severe obesity with body mas s index (BMI) of 35.0 to 35.9 and comorbidity 06/30/2024 Skin lesion of left arm 06/30/2024 Dyslipidemia 06/30/2024 Other chronic pain 06/30/2024 Opioid use 03/14/2024 Abnormal gait 03/14/2024 Fall, subsequent encounter 01/15/2024 Neuropathy 01/15/2024 Coarse tremors 11/27/2023 Hypokalemia 11/27/2023 Type 2 diabetes mellitus wit hout complication, without long-term current use of insulin ([facility]) 07/23/2023 History of bilateral mastectomy 06/06/2022 Iron deficiency anemia 06/02/2022 Chronic constipation 10/22/2021 Vitamin D deficiency, unspecified 04/04/2021 Family history of diabetes mellitus 04/06/2020 Osteochondral lesion 02/28/2020 History of breast cancer 01/02/2020 Overview (01/03/2020): Added automatically from request for surgery [id number] Cancer associated pain 05/25/2019 Chronic rhinitis 05/25/2019 Ductal carcinoma in situ (DCIS) of right breast 05/02/2019 Vitamin B 12 deficiency 03/09/2019 Female bladder prolapse 01/06/2019 Encounter for smoking cessation counseling 01/06 Bipolar disorder ([facility]) 10/14/2018 Borderline personality disorder ([facility] ) 10/14/2018 Mixed stress and urge urinary incontinence 10/05 Essential hypertension 06/07/2018 History of hysterectomy 01/19/2018 Panic attack as reaction to stress 12/29/2017 Low vitamin D level 11/24/2017 Environmental and seasonal allergies 11/24/2017 Hearing decreased, unspecified laterality 2017 Bulging of cervical intervertebral disc 07/03/20 17 Insomnia 05/08/2017 Anxiety 03/31/2017 Migraines 11/28/2016 Nicotine dependence 07/29/2016 COPD (chronic obstructive pu lmonary disease) ([facility]) 05/27/2016 GERD (gastroesophageal reflux disease) 6 Inflammatory liver disease 05/27/2016 Asthma ([facility]) 05/27/2016 Resolved Problems Problem Noted Date Diagnosed Date Resolved Date Class 2 drug-induced obesity with serious comorbidity and body mass index (BMI) of 35.0 to 35.9 in adult 03/14/2024 06/30/2024 Weakness 01/15/2024 03/14/2024 Dizziness 01/15/2024 06/30/2024 Chronic diarrhea 01/29/2022 03/14/2024 Blood present in stool 01/29/202203/14 Colitis 01/29/2022 07/28/2022 Mass of soft tissue of shoulder 09/27/2021 07/23/2023 Right hip pain 04/04/2021 03/14/2024 Class 2 severe obesity due t o excess calories with serious comorbidity and body mass index (BMI) of 37.0 to 37.9 in adult 04/04/2021 4 Fatigue, unspecified type 10/10/2020 Numbness and tingling 10/10/20202020 Prediabetes 04/06/2020 03/14/2024 Acute cystitis without hematuria 04/06/2020 10/10/2020 Chronic bilateral low back p ain with bilateral sciatica 04/06/2020 04/04/2021 Morbid (severe) obesity due to excess calories 01/03/2020 04/04/2021 Other tear of meniscus of ri ght knee, unspecified meniscus, unspecified whether old or current tear, initial encounter 10/09/201906/30 Numbness of upper extremity 07/13/2019 10/10/2020 Urinary problem 07/13/2019 10/10/2020 Dysuria 07/13/2019 10/10/2020 Abnormal breast biopsy 05/03/201910/10 Malignant neoplasm of breast ([facility]) 04/19/2019 10/10/2020 Overview (10/08/2020): says she will have surgery then radiation treatments says she will have surgery then radiation treatments says she will have surgery then radiation treatments says she will have surgery then radiation treatments Boil of left foot 03/09/2019 10/10/2020 Abnormal mammogram of right breast 03/09/2019 10/10/2020 Urge incontinence of urine 10/05/2018 0 10/10/2020 Injury of right foot, initial encounter 10/05/2018 10/10/2020 Fracture of unspecified tars al bone(s) of right foot, initial encounter for closed fracture 10/05/2018 04/04/2021 Hypertension 06/07/2018 10/10/2020 High blood pressure 06/07/2018 10/11/19 21 Borderline hypertension 06/07/201809/18 Boils 05/11/2018 10/10/2020 Adult BMI 33.0-33.9 kg/sq m 03/28/2018 10/10/2020 Fracture of third metatarsal bone of left foot 03/24/2018 10/10/2020 Right foot pain 03/23/2018 10/10/2020 Injury of left foot 03/23/2018 10/11/19 21 Hypertriglyceridemia 01/28/2018 024 Headache 01/28/2018 10/10/2020 Vaginal bleeding, abnormal 01/19/2018 0 10/10/2020 Kidney dysfunction 12/15/2017 1 Wrist pain 07/21/2017 10/10/2020 Bunion, right 06/23/2017 10/10/2020 Right ankle injury 06/23/2017 1 Chronic nausea 02/26/2017 03/14/2024 Chronic vomiting 02/26/2017 10/10/2020 Localized osteoarthritis of right knee 01/01/2017 10/10/2020 Neck pain 12/22/2016 10/10/2020 Sleep disorder 05/27/2016 10/10/2020 Encounters Date Type Department Care Team Description 09/29/2024 Scan HEALTH INFO SRVCS Scanned, Doc [facility] Lab (SCAN) 09/16/2024 Telephone [facility] [address] [phone] KilBarbara baldwin FNP Refill Request 09/09/2024 Telephone [facility] [address] [phone] Barbara Jackman FNP Medication Information 08/19/2024 11:20 AM COMPLIANCE ASSOCIATE Office Visit [facility] [address] [phone] Barbara Jackman FNP Mole (Lft forearm came back after freezing) 08/19/2024 Travel from Last 3 Months Immunizations Name Administration Dates Next Due Fluzone (IIV3, Trivalent, 0. 5 ML Prefilled Syringe) 06/30/2024 Fluzone 6 Months+ Quad (0.5 mL Prefilled Syringe) 07/23/2023,05/27/2022,09/27/2021,2019 Influenza Adult (Generic) 08/05/2021,,04/29/2018,2016,04/18/2016 PFIZER COVID-19 (12+) MRNA, LNP-S, PF, ROBEL-SUCROSE, 30 MCG/0.3 ML (COMIRNATY) 06/30/2024 PFIZER COVID-19 (ORIGINAL FORMULATION, PURPLE CAP) mRNA, LNP-S, PF, 30 MCG/0.3 ML DOSE 11/12/2020,10/22/2020 PFIZER COVID-19 BIVALENT (12 +) mRNA, LNP-S, PF, 30 MCG/0.3 ML DOSE 05/27/2022 Pneumococcal (Prevnar 13) 06/07/2018 Pneumococcal (Prevnar 20) 07/23/2023 Tdap (Boostrix) 06/07/2018 Tdap (Generic) 06/07/2018 Family History Medical History Relation Comments COPD Father Cancer Father prostate, lung Diabetes Father Heart Father Heart Disease Father CHF Hypertension Father Sleep Apnea Father No Known Problems Maternal Grandfather No Known Problems Maternal Grandmother COPD Mother dx in her mid-40 s Cancer Mother breast ca Psychiatry Mother No Known Problems Paternal Grandfather No Known Problems Paternal Grandmother Relation Status Comments Father (Age 70) Maternal Grandfather Maternal Grandmother Mother (Age 52) Paternal Grandfather Paternal Grandmother Social History Tobacco Use Types Packs/Day Years Used Date Smoking Tobacco: Former Cigarettes 1 36 1 988 - 4 Smokeless Tobacco: Never Tobacco Cessation:Counseling Given: Yes Alcohol Use Standard Drinks/Week Comments Not Currently [...] CDT Gender Identity Female 09/24/2021 11:16 AM COMPLIANCE ASSOCIATE Sexual Orientation Straight 09/24/2021 11 :16 AM COMPLIANCE ASSOCIATE Last Filed Vital Signs Vital Sign Reading Time Taken Comments Blood Pressure 115/76 08/19/2024 11:34 AM COMPLIANCE ASSOCIATE Pulse 85 08/19/2024 11:34 AM COMPLIANCE ASSOCIATE Temperature 36.2 C (97.2 F) 08/19/2024 11:34 AM COMPLIANCE ASSOCIATE Respiratory Rate 14 08/19/2024 11:34 AM COMPLIANCE ASSOCIATE Oxygen Saturation 95% 08/19/2024 11:34 AM COMPLIANCE ASSOCIATE Inhaled Oxygen Concentration - - Weight 103.9 kg (229 lb) 08/19/2024 11:34 AM COMPLIANCE ASSOCIATE Height 170.2 cm (5' 7 ) 08/19/2024 11:34 AM COMPLIANCE ASSOCIATE Body Mass Index 35.87 08/19/2024 11:34 AM COMPLIANCE ASSOCIATE Plan of Treatment Health Maintenance Due Date Last Done Comments Kidney Health Evaluation 1975 Annual Physical 1978 Hepatitis B Vaccines (1 of 3 - 19+ 3-dose series) 1994 Lipid Panel 09/14/2024 09/14/2023, 06/19, 04/16/2021, Additional history exists Hemoglobin A1C 12/29/2024 06/30/2024, 02/18, 11/27/2023, Additional history exists Mammogram Screening 01/14/2025 04/20/2019, 03/01/2019, 02/16/2019 Postponed from 04/20/2021 (Patient Refused) Diabetes: Retinopathy Eye Exam 07/06/2026 07/06/2024, 03/15/2024 DTaP, Tdap and Td Vaccines (3 - Td or Tdap) 06/07/2028 06/07/2018, 06/07/2018 Colorectal Cancer Screening Colonoscopy (10 Years) 05/28/2031 05/28/2021 Hepatitis C Completed 07/03/2022 Pneumococcal Vaccine: Pediatrics (0 to 5 Years) and At-Risk Patients (6 to 64 Years) Completed 07/23/2023, 06/07/2018 COVID-19 Vaccine Completed 06/30/2024, 02/2022, 11/12/2020, Additional history exists Influenza Adult Completed 06/30/2024, 10/2023, 05/27/2022, Additional history exists PHQ-2 (Physician [place]) Completed 08/19/2024 Meningococcal B Vaccine Aged Out No l onger eligible based on patient's age to complete this topic Meningococcal Vaccine Aged Out No mariel georgette eligible based on patient's age to complete this topic RSV Immunizations Under 20 Months Aged Out No longer eligible based on patient's age to complete this topic Procedures Procedure Name Priority Date/Time Associated Diagnosis Comments OUTSIDE LAB (SCAN ORDER) 09/29/2024 DESTRUCTION BY NEUROLYTIC AGENT Routine 08/19/2024 11:20 AM COMPLIANCE ASSOCIATE Skin lesion of left arm DIABETIC RETINOPATHY EXAM (NEGATIVE)(SCAN ORDER) Routine 07/06/2024 HEMOGLOBIN, GLYCOSYLATED Routine 06/30/2024 Type 2 diabetes mellitus without complication, without long-term current use of insulin ([facility]) LIPID PANEL Routine 09/14/2023 8:38 AM COMPLIANCE ASSOCIATE Class 1 obesity due to excess calories with serious comorbidity and body mass index (BMI) of 34.0 to 34.9 in adult Essential hypertension HEPATITIS C ANTIBODY Routine 07/03/2022 9:48 AM COMPLIANCE ASSOCIATE Encounter for hepatitis C screening test for low risk patient COLONOSCOPY GENERIC (SCAN ORDER) 05/28/2021 MG DIAGNOSTIC RT DIGI Routine 04/20/2019 2:46 PM CDT Breast calcification, right from Last 3 Months or Most Recently Relevant to Health Maintenance Results * OUTSIDE LAB (SCAN ORDER) (09/29/2024) 09/29/2024 [employer] [facility] Scanned SCANNING Final Resu lt * Lesion Destruction (08/19/2024 11:20 AM COMPLIANCE ASSOCIATE) Narrative Barbara Jackman FNP - 08/19/2024 11:20 AM COMPLIANCE ASSOCIATE LORAINE Eisenberg 08/19/2024 12:07 PM Lesion Destruction Date/Time: 08/19/2024 11:20 AM Performed by: LORAINE Eisenberg Authorized by: LORAINE Eisenberg Number of Lesions: 1 Lesion 1: Body area: upper extremity Upper extremity location: L upper arm Malignancy: malignancy unknown Destruction method: cryotherapy Comments: Liquid nitrogen was applied for 3-5 seconds to the skin lesions and the expected blistering or scabbing reaction explained. Do not pick at the areas. Patient reminded to expect hypopigmented scars from the procedure. Return if lesions fail to fully resolve. She tolerated the procedure well. Result [facility] Barbara BARON NEUROLOGY ORDERABLES Final Res ult * DIABETIC RETINOPATHY EXAM (NEGATIVE) (07/06/2024) [employer] [facility] Scanned SCANNING Final Resu lt [facility] * HEMOGLOBIN, GLYCOSYLATED (06/30/2024) HGB A1C 5.0 % [facility] 06/30/2024 Barbara Jackman [facility] Final Result Performing Organization Address City/[facility]/ZIP Co de Phone Number [facility] [address] [place] [address], [place] * LIPID PANEL (09/14/2023 8:38 AM COMPLIANCE ASSOCIATE) CHOLESTEROL 134 <200 MG/DL 09/14/2023 4:13 PM COMPLIANCE ASSOCIATE [facility] TRIGLYCERIDES 66 <150 MG/DL 09/14/2023 4:13 PM [facility] HDL 57 >40.0 MG/DL 09/14/2023 4:13 PM [facility] LDL (CALCULATED) 64 <100 MG/DL 09/14/19 4:13 PM COMPLIANCE ASSOCIATE [facility] NON HDL CHOLESTEROL 77 <130 MG/DL 09/14 4:13 PM [facility] CHOL/HDL RATIO 2.4 0.0 - 4.5 09/14/2023 4:13 PM [facility] VLDL CALCULATION 13 5 - 55 MG/DL 09/14/2023 4:13 PM [facility] LIPID INTERPRETATION 09/14/2023 4:13 PM [facility] Comment: NIH CONCENSUS REPORT RECOMMENDATIONS: ADULT CHILD LOW RISK: CHOLESTEROL <200 <170 TRIGLYCERIDE <150 --- HDL >=60 --- LDL <100 <110 BORDERLINE: CHOLESTEROL 200-239 170-199 TRIGLYCERIDE 150-199 --- HDL 40-59 --- LDL 100-159 110-129 HIGH RISK: CHOLESTEROL >=240 >=200 TRIGLYCERIDE >=200 --- HDL <40 --- LDL >=160 >=130 09/14/2023 8:38 AM COMPLIANCE ASSOCIATE us Barbara BARON LABORAT[facility] Final Result [facility] [address] [place] [address], * (ABNORMAL) HEPATITIS C ANTIBODY ([facility] ONLY) (07/03/2022 9:48 AM COMPLIANCE ASSOCIATE) Pathologist [facility] HEPATITIS C AB REACTIVE( A) NON-REACT LEELA 07/03/2022 8:22 PM COMPLIANCE ASSOCIATE [facility] Comment: PRESUMPTIVE EVIDENCE OF ANTIBODIES TO HCV. CONSIDER ORDERING HCV RNA DETECTION AND QUANTIFICATION BY RT-PCR ANALYSIS ON A NEW SPECIMEN. 07/03/2022 9:48 AM COMPLIANCE ASSOCIATE us Barbara Jackman [employer] [facility] Final Result [facility] [address] [place] [address], [id number] * COLONOSCOPY GENERIC (05/28/2021) 05/28/2021 Narrative 05/28/2021 Ordered by an unspecified provider. us Documents Scanned SCANNING Final Result * MG DIAGNOSTIC RT DIGI (04/20/2019 2:46 PM CDT) Anatomical Region Laterality Modality Breast Right Mammography 04/20/2019 2:43 PM CDT Impressions 04/20/2019 2:45 PM CDT =====IMPRESSION:===== Post biopsy changes posterior aspect right breast as described. Assessment: Post procedure imaging for marker placement. Recommendation: 1: Clinical management right Comments: Follow-up based on clinical and pathologic findings. A negative or benign mammography report should not discourage follow-up for biopsy of a clinically significant finding and/or abnormality. Dense breast tissue may obscure small neoplasms. Narrative 04/20/2019 2:45 PM CDT Examination: Digital right diagnostic mammogram Exam Date/Time: 04/12/2019 12:00 AM Reason For Exam: POST BX Microcalcifications right breast. Postop stereotactic biopsy right breast. Comparison: Right mammographic image is 02/16/2019. Technique: Digital diagnostic mammography of the right breast was performed. This study was read with the assistance of a computer-aided detection system. Tissue density: The breast tissue contains scattered fibroglandular densities. Findings: Post biopsy changes are seen within the posterior aspect right breast. Decreased number of calcifications and this region. Some soft tissue air is noted. Some increase parenchymal density is noted, likely represent postbiopsy hemorrhage. Biopsy clip is seen and this region. Procedure Note Víctor Ramos MD - 04/22/2019 Examination: Digital right diagnostic mammogram Exam Date/Time: 04/12/2019 12:00 AM Reason For Exam: POST BX Microcalcifications right breast. Postop stereotactic biopsy rightbreast. Comparison: Right mammographic image is 02/16/2019. Technique: Digital diagnostic mammography of the right breast was performed. This study was read with the assistance of a computer-aided detection system. Tissue density: The breast tissue contains scattered fibroglandular densities. Findings: Post biopsy changes are seen within the posterior aspectright breast. Decreased number of calcifications and this region. Some soft tissue air is noted. Some increase parenchymal density is noted, likely represent postbiopsy hemorrhage. Biopsy clip is seen and this region. =====IMPRESSION:===== Post biopsy changes posterior aspect right breast as described. Assessment: Post procedure imaging for marker placement. Recommendation: 1: Clinical management right Comments: Follow-up based on clinical and pathologic findings. A negative or benign mammography report should not discourage follow-upfor biopsy of a clinically significant finding and/or abnormality. Densebreast tissue may obscure small neoplasms. Shakeel Blanc MD MAMMO Final Result from Last 3 Months or Most Recently Relevant to Health Maintenance Insurance MEDICAID [employer] Advance Directives Documents on File Type Date Recorded Patient International Marketing Manager Expl anation Legal Documents 04/05/2019 CASSANDRA Paperwor k Care Teams Flatwork Folder Relationship Specialty Start Date End Date Barbara Jackman FNP [address] [place] [address] PCP - General 12/04/16 Rachna Dumont, TILE MOLDER [address] [place] [address] Nurse Practitioner NURSE PRACTITIONER 05/10/19 Patsy Vogt MD [address] [place] [id number] Referring Physician RADIATION ONCOLOGY 05/10/19 Doni Fields MD [address] [place] [id number] ONCOLOGY 05/10/19
--- OUTSIDE RECORDS SUMMARY | 2024-10-12 14:40 | XMS_ITS | Referral Summary ---
Author Organization [facility] Address [facility] access hospital[address] [place] [address] Care Team Providers Care Bariatric Coordinator Name Role Phone Barbara Jackman NP Primary Care Provider [phone] Allergies Active Allergy Reactions Criticality Noted Date [...] (01/02/2020): Added automatically from request for surgery [id number] Cyst of right breast 09/23/2019 Overview (09/23/2019): Added automatically from request for surgery [id number] Dysuria 07/13/2019 Urinary problem 07/13/2019 Numbness of [...] Pneumococcal Conjugate PCV 13 06/07/2018 Tdap 06/07/2018 Social History Tobacco Use Types Packs/Day Years Used Date Smoking Tobacco: Every Day Cigarettes 0.5 32.2 Started: 1992 Smokeless Tobacco: Never Alcohol Use Standard Drinks/Week Comments Not Currently 0 (1 standard drink = 0.6 oz pur e alcohol) rare Comments No Sex and Gender Information Value Date Recorded Sex Assigned at Not on file Legal Sex Female 6:58 PM COFFIN MAKER Gender Identity Not on file Sexual Orientation Not on file Last Filed Vital Signs Vital Sign Reading [...] 01/17/2020 4:30 PM CDT Plan of Treatment Not on file Medical Devices Implanted Type Area Legislative Director Device Identifier Shelf Expiration Date Model / Serial / Lot Acelity Siemens [id number] Alloderm Select 16x6cm Allograft Regenerative Thk.4-1.6mm Medium - [id number] - [id number] Implanted:Qty: 1 on 10/17/2019 by Maxwell Kelsey MD at [facility] Left: Breast [employer] 04/18/2021 [id number] / [id number] / [id number] [place] [employer] [id number] Alloderm Select 16x6cm Allograft Regenerative Thk.4-1.6mm Medium - [id number]$ - [id number] Implanted:Qty: 1 on 10/17/2019 by Maxwell Kelsey MD at [facility] Right: Breast [employer] 04/18/2021 [id number] / +[id number]$ / [id number] [employer] 507x-Hb-44-T Implant Mammary Natrelle Te Smooth 578s-Iy-71-T With Fourte - [id number] - [id number] Implanted:Qty: 1 on 10/17/2019 by Maxwell Kelsey MD at [facility] Right: Breast [employer] [id number] 04/18/2024 133S-MX-15 -T / [id number] / [employer] 327o-Im-53-T Implant Mammary Natrelle Te Smooth 084d-Mn-91-T With Fourte - [id number] - [id number] Implanted:Qty: 1 on 10/17/2019 by Maxwell Kelsey MD at [facility] Left: Breast [employer] [id number] 11/30/2023 [facility]-MX-15 -T / [id number] / [employer] Ssx-800 Natrelle Inspira Smooth Xfull Profile Implant 800cc Breast - [id number] - [id number] Implanted:Qty: 1 on 01/30/2020 by Maxwell Kelsey MD at [facility] Right: Breast [employer] [id number] 11/10/2023 SSX-800 / [id number] / [id number] [employer] Ssx-800 Natrelle Inspira Smooth Xfull Profile Implant 800cc Breast - [id number] - [id number] Implanted:Qty: 1 on 01/30/2020 by Maxwell Kelsey MD at [facility] Left: Breast [employer] [id number] 06/25/2024 SSX-800 / [id number] / [id number] Insurance [employer] MEDICARE GOLD IDPA [facility] Advance Directives For more information, please contact: [phone] Documents on File Type Date Recorded Patient Physicist Solid Earth Expl anation ADVANCE DIRECTIVE 09/07/2019 8:37 AM Power of Plant Breeder Scientist-Medical Care Teams Bariatric Coordinator Relationship Specialty Start Date End Date Barbara Jackman NP [address] [place] [address] PCP - General Nurse Practitioner 05/04/19
--- OUTSIDE RECORDS SUMMARY | 2024-10-12 14:41 | XMS_ITS | Encounter Summary ---
Author Organization [facility] Address [address] [address] Phone Care Team Providers Care Production Honing Machine Operator Name Role Phone Barbara Jackman APRN, CNP Primary Care Provider Fabian Lane MD Unavailable [phone] Anastasia Reaves MD Unavailable [phone] Reason for Referral * Radiology Services (Routine) - Closed Specialty Diagnoses / Procedures Referred By Jyoti avila Referred To Contact Radiology Diagnoses Ductal carcinoma in situ (DCIS) of right breast Procedures CT CHEST W CONTRAST Paula Peter APRN, CNP [address] [place] [address] Phone: tel: fax: Referral ID Status Reason Start Date Expiration Date Visits Re quested Visits Authorized [id number] Closed 09/29/2024 1 1 Encounter Details Date Type Department Care Team (Late st Contact Info) Description 09/29/2024 Telephone [facility] [address] [address] Paula Peter APRN, CNP [address] [place] [address] Social History Tobacco Use Types Packs/Day Years Used Date Smoking Tobacco: Former Cigarettes Smokeless Tobacco: Never PHQ-2 Answer Date Recorded Total Score - Questions 1-9 0 04/1 10/2021 Comments Unknown Sex and Gender Information Value Date Recorded Sex Assigned at Not on file Legal Sex Female 11:14 AM CDT Gender Identity Not on file Sexual Orientation Not on file documented as of this encounter Functional Status * Question Answer Date of Assessment Author Little interest or pleasure in doing things Not at all 09/29/2024 9:52 AM CDT Cathi Maradiaga RN Feeling down, depressed, or hopeless Not at all 09/29/2024 9:52 AM CDT Cathi Maradiaga RN * Over the past 2 weeks, how often have you been bothered by any of the following problems? Question Answer Date of Assessment Author Patient Health Questionnaire -2 Score 0 09/29/2024 9:52 AM CDT Cathi Maradiaga RN documented as of this encounter Miscellaneous Notes * Telephone Encounter - Lala Shore RN - 09/29/2024 2:54 PM CDT Order placed Please see note below. Please schedule patient * Telephone Encounter - Paula Peter APRN, MARLENE - 09/29/2024 11:05 AM CDT Please let patient know that I spoke with Dr. Lane regarding breast pain. We will keep appointment for ultrasound for left breast. He would also like to get a chest CT. Please schedule chest CT here in our office. See if she just wants to do this same day as her return office visit. documented in this encounter Plan of Treatment Upcoming Encounters Date Type Department Care Team (Late st Contact Info) Description 11/10/2024 2:00 PM CDT Office Visit [facility] [address] [id number] Fabian Lane MD [address] [place] [address] Scheduled Orders Name Type Priority Associated Diagnoses Orde r Schedule CT CHEST W CONTRAST Imaging Routine Ductal carcinoma in situ (DCIS) of right breast Expected: 11/16/2024, Expires: 11/16/2024 documented as of this encounter Visit Diagnoses Diagnosis Ductal carcinoma in situ (DCIS) of right breast- Primary documented in this encounter Care Teams Production Honing Machine Operator Relationship Specialty Start Date End Date Barbara Jackman, COMMUNITY HEALTH NURSE, QUALITY ASSURANCE NURSE [address] [place] [address] PCP - General Internal Medicine 10/07/[address] MD [address] [place] [phone] Consulting Physician Oncology 10/07/21 Anastasia Reaves MD [address] [place] [address] [address] [place] [address] Internal Medicine 04/02/23 documented as of this encounter
--- OUTSIDE RECORDS SUMMARY | 2024-10-12 14:41 | XMS_ITS | Encounter Summary ---
Author Organization [facility] Address [address] [place] [address] Phone Care Team Providers Care Black Leather Buffer Name Role Phone Barbara Jackman APRN, CONTINUOUS VULCANIZING MACHINE OPERATOR Primary Care Provider Fabian Lane MD Unavailable [phone] Anastasia Reaves MD Unavailable [phone] Reason for Visit * Reason Comments Medication Refill Encounter Details Date Type Department Care Team (Late st Contact Info) Description 11/10/2023 Refill [facility] [address] [place] [address] Paula Peter APRN, CONTINUOUS VULCANIZING MACHINE OPERATOR [address] [place] [address] Medication Refill Social History Tobacco Use Types Packs/Day Years Used Date Smoking Tobacco: Every Day Cigarettes Smokeless Tobacco: Never PHQ-2 Answer Date Recorded Total Score - Questions 1-9 0 10/18 Comments Unknown Sex and Gender Information Value Date Recorded Sex Assigned at Not on file Legal Sex Female 11:14 AM CDT Gender Identity Not on file Sexual Orientation Not on file documented as of this encounter Miscellaneous Notes * Telephone Encounter - Анна Costa RN - 11/10/2023 12:15 PM CDT Refill request from pharmacy. Please fill if appropriate. documented in this encounter Plan of Treatment Upcoming Encounters Date Type Department Care Team (Late st Contact Info) Description 11/10/2024 2:00 PM CDT Office Visit [facility] [address] [place] [address] MD [address] [facility] [address] [place] [address] documented as of this encounter Visit Diagnoses Not on filedocumented in this encounter Care Teams Black Leather Buffer Relationship Specialty Start Date End Date Barbara Jackman, POST HOLE DIGGER, CONTINUOUS VULCANIZING MACHINE OPERATOR [address] [place] [address] PCP - General Internal Medicine 10/07/[address] MD [address] [place] [phone] Consulting Physician Oncology 10/07/21 Anastasia Reaves MD [address] [facility] [address] [place] [address] Internal Medicine 04/02/23 documented as of this encounter
--- OUTSIDE RECORDS SUMMARY | 2024-10-12 14:41 | XMS_ITS | Encounter Summary ---
Author Organization [facility] Address [address] [place] [address] Care Team Providers Care Scientific Specialist Name Role Phone Barbara Jackman LORAINE Primary Care Provider [phone] Rachna Dumont HOTEL NIGHT AUDITOR Unavailable Unavailab Patsy Gomez MD Unavailable [phone] Doin Fields MD Unavailable [phone] Elizabeth Daniel RN Unavailable [phone] Encounter Details Date Type Department Care Team (Late st Contact Info) Description 09/15/2019 MyChart Message Enc [facility] - [address], [address] [place] [phone] Rachna Dumont, HOTEL NIGHT AUDITOR RE: Question Social History Tobacco Use Types Packs/Day Years Used Date Smoking Tobacco: Every Day Cigarettes 1 37.2 Started: 1987 Smokeless Tobacco: Never Comments:09/15/2019: currentl y 5 cigarettes a day Alcohol Use Standard Drinks/Week Comments Yes 0 (1 standard drink = 0.6 oz pur e alcohol) on average 3 drinks a year AUDIT-C Answer Date Recorded Frequency of Alcohol Consumption Monthly or less 06/07/2018 Average Number of Drinks Not on file 018 Frequency of Binge Drinking Not on file 05/20 PHQ-2 Answer Date Recorded PHQ-2 Score 4 10/29/2018 Comments No Sex and Gender Information Value Date Recorded Sex Assigned at Female 11/14/2021 10:53 AM CDT Legal Sex Female 5:39 PM CDT Gender Identity Female 09/24/2021 11:16 AM THERAPEUTIC RECREATION LEADER Sexual Orientation Straight 09/24/2021 11 :16 AM THERAPEUTIC RECREATION LEADER documented as of this encounter Plan of Treatment Not on file documented as of this encounter Visit Diagnoses Not on filedocumented in this encounter Additional Health Concerns Infection Onset Date Last Indicated Resolved Time COVID-19 Rule Out 06/18/2020 06/19/2020 07/05/2020 4:09 PM THERAPEUTIC RECREATION LEADER COVID-19 Confirmed 06/19/2020 06/19/2020 12:35 AM THERAPEUTIC RECREATION LEADER Assessment Noted Time PHQ-9 Depression Total Score: 18 019 2:07 PM CDT documented as of this encounter Care Teams Scientific Specialist Relationship Specialty Start Date End Date Barbara Jackman FNP [address] [place] [address] PCP - General 12/04/16 Rachna Dumont, HOTEL NIGHT AUDITOR [address] [place] [address] Nurse Practitioner NURSE PRACTITIONER 05/10/19 Patsy Vogt MD [address] [place] [address] Referring Physician RADIATION ONCOLOGY 05/10/19 Doni Fields MD [address] [place] [address] ONCOLOGY 05/10/19 Elizabeth Daniel, RN [address] [place] [address] Hostess Cashier (Ambulatory) REGISTERED NURSE 02/06/22 documented as of this encounter
--- OUTSIDE RECORDS SUMMARY | 2024-10-12 14:41 | XMS_ITS | Clinical Summary ---
Author Organization [facility] Address [address], [facility] [address] [place] [address] Phone Care Team Providers Care Hay Buckler Name Role Phone Barbara Jackman APRN, SUPERVISOR INSTRUMENT MAINTENANCE Primary Care Provider Fabian Lane MD Unavailable [phone] Anastasia Reaves MD Unavailable [phone] Allergies Active Allergy Reactions Criticality Noted Date Comments Bupropion Rash,Vomiting Medium 05/27/2016 Buspirone Rash,Nausea,Vomiting,Unknown Medium 016 Codeine Rash Medium 10/17/2019 Escitalopram Hives,Rash,Unknown Medium 05/27/2016 Furosemide Hives,Other (see Comments) Medium 6 Latex Rash,Unknown Medium 10/25/2018 Mirtazapine Rash,Unknown Medium 07/22/2017 Morphine Hives,Swelling,Vomiting,Unknown Medium 02/2016 Quetiapine Hives,Unknown,Other (see Comments) Medium 0 07/22/2017 Venlafaxine Rash,Unknown,Hives Medium 05/27/2016 Medications albuterol 108 (90 Base) MCG/ACT Aerosol Solution INHALE 2 PUFFS INTO THE LUNGS EVERY 6 HOURS NEEDED FOR WHEEZING 04/05/20 19 Active zolpidem (AMBIEN) 10 MG Tablet TAKE 1 TABLET(10 MG) BY MOUTH EVERY NIGHT NEEDED FOR SLEEP 10/09/19 22 Active fluconazole (DIFLUCAN) 150 MG Tablet 09/28/19 22 Active Mirabegron ER (Myrbetriq) 50 MG TABLET SR 24 HR TAKE 1 TABLET(50 MG) BY MOUTH DAILY 09/10/19 22 Active atorvastatin (LIPITOR) 10 MG Tablet TAKE 1 TABLET(10 MG) BY MOUTH EVERY NIGHT AT BEDTIME 04/14/20 19 Active Breo Ellipta 200-25 MCG/INH AEROSOL POWDER, BREATH ACTIVATED 10/04/19 22 Active gabapentin (NEURONTIN) 300 MG Capsule 09/11/19 22 Active baclofen (LIORESAL) 20 MG Tablet TAKE 1 TABLET(20 MG) BY MOUTH THREE TIMES DAILY 04/05/20 19 Active ondansetron (ZOFRAN-ODT) 4 MG TABLET DISPERSIBLE DISSOLVE 1 TABLET(4 MG) ON THE TONGUE EVERY 8 HOURS NEEDED FOR NAUSEA 04/05/20 19 Active montelukast (SINGULAIR) 10 MG Tablet Take 10 mg by mouth. 03/16/20 19 Active pantoprazole (PROTONIX) 40 MG Tablet Delayed Response 10/22/19 22 Active fluticasone (FLONASE) 50 MCG/ACT Suspension SHAKE LIQUID AND USE 1 SPRAY IN EACH NOSTRIL TWICE DAILY 09/12/19 21 Active SUMAtriptan (IMITREX) 100 MG Tablet 07/22/19 22 Active docusate sodium 100 MG Capsule Take 100 mg by mouth. 10/17/19 20 Active lamoTRIgine (LaMICtal) 200 MG Tablet Take 200 mg by mouth. 09/29/19 19 Active Lurasidone HCl (Latuda) 120 MG Tablet Take by mouth. Activ e Linzess 72 MCG Capsule 05/05/20 22 Active sucralfate (CARAFATE) 1 GM Tablet 05/27/20 22 Active clonazePAM (KlonoPIN) 1 MG Tablet 05/28/20 22 Active famotidine (PEPCID) 40 MG Tablet 07/03/20 22 Active prazosin (MINIPRESS) 5 MG Capsule 07/16/20 22 Active potassium chloride SA (KLORCON M) 20 MEQ Tablet Controlled Release TAKE 1 TABLET BY MOUTH DAILY 5 Tablet 11/10/19 24 Active folic acid (FOLVITE) 1 MG TabletIndicatio ns:Iron deficiency anemia, unspecified iron deficiency anemia type TAKE 1 TABLET BY MOUTH DAILY 30 Tablet 10 11/30/19 24 Active atomoxetine (STRATTERA) 25 MG Capsule 1 capsule in the morning Orally Once a day 12/24/19 24 Active cetirizine (ZyrTEC) 10 MG Tablet Take 1 Tablet by mouth daily. Active Vitamin D3 (CHOLECALCIFERO L) 125 MCG Tablet Take 125 mcg by mouth. Active cyanocobalamin 1000 MCG Tablet Take 1,000 mcg by mouth. Active haloperidol (HALDOL) 0.5 MG Tablet 1 tablet in am, 2 tablets at bedtime Orally Once a day 05/12/20 24 Active ibuprofen (MOTRIN) 800 MG Tablet 1 tablet with food or milk as needed Orally every 8 hrs 01/15/20 24 Active lansoprazole (PREVACID) 15 MG CAPSULE DELAYED RELEASE 1 capsule before a meal Orally Once a day for 30 day(s) Active Magnesium Oxide -Mg Supplement 250 MG Tablet Take 250 mg by mouth. Active Potassium Chloride ER (KLORCON) 20 MEQ Tablet Controlled Release Take 20 mEq by mouth. 11/30/19 24 Active Tirzepatide 7.5 MG/0.5ML Solution Auto-injector 7.5 mg by Subcutaneous route once a week. 06/30/20 24 Active HYDROcodone-gavi taminophen (NORCO) 10-325 MG Tablet Take 1 Tablet by mouth. 09/16/19 25 Active hydroCHLOROthia zide 12.5 MG Tablet Take 12.5 mg by mouth. 06/17/20 24 Active lactulose (CHRONULAC) 10 GM/15ML Solution 15 mL Orally Once a day Active naloxone HCl (Narcan) 4 MG/0.1ML Liquid 1 [place]kiff by Nasal route. 03/14/20 24 Active lubiprostone (AMITIZA) 8 MCG Capsule Take 8 mcg by mouth. 12/22/19 24 Active HYDROcodone-gavi taminophen (NORCO) 10-325 MG Tablet Take 1 Tablet by mouth. 02/27/20 025 Discontin ued(Med List Clean Up) dicyclomine (BENTYL) 20 MG Tablet TK 1 T PO UP TO QID 04/05/20 025 Discontin ued(Med List Clean Up) naloxone HCl (Narcan) 4 MG/0.1ML Liquid 1 [place]kiff by Nasal route. 02/01/20 025 Discontin ued(Med List Clean Up) hydroCHLOROthia zide (MICROZIDE) 12.5 MG Capsule Take 12.5 mg by mouth daily. 025 Discontin ued(Med List Clean Up) lactulose (CHRONULAC) 10 GM/15ML Solution 07/03/20 22 025 Discontin ued(Med List Clean Up) semaglutide,0.2 5 or 0.5MG/DOS, (Ozempic, 0.25 or 0.5 MG/DOSE,) 2 MG/3ML Solution Pen-injector INJECT 0.25 MG UNDER THE SKIN EVERY 7 DAYS 09/08/19 24 025 Discontin ued(Med List Clean Up) atorvastatin (LIPITOR) 10 MG Tablet Take 10 mg by mouth. 04/04/20 24 025 Discontin ued(Med List Clean Up) Active Problems Problem Noted Date Diagnosed Date Nicotine dependence with nicotine-induced disord er 06/03/2022 Encounter for smoking cessation counseling 06/03 Iron deficiency anemia 06/02/2022 Colitis 05/29/2022 Vitamin B12 deficiency 05/29/2022 Ductal carcinoma in situ (DCIS) of right breast 10/31/2021 Encounters Date Type Department Care Team Description 10/05/2024 Telephone [facility] [address] [phone] MD 09/29/2024 10:35 AM CDT Lab [facility] [address] [phone] Lab, [facility] Iron deficiency anemia, unspecified iron deficiency anemia type; Ductal carcinoma in situ (DCIS) of right breast; Vitamin B12 deficiency; Folic acid deficiency 09/29/2024 10:00 AM CDT Office Visit [facility] [address] [phone] Paula Peter, SHOE PATTERNMAKER, SUPERVISOR INSTRUMENT MAINTENANCE Iron deficiency anemia, unspecified iron deficiency anemia type (Primary Dx); Ductal carcinoma in situ (DCIS) of right breast; Vitamin B12 deficiency; Folic acid deficiency; Breast pain, left 09/29/2024 Results Follow-Up [facility] [address] [phone] Paula Peter, SHOE PATTERNMAKER, SUPERVISOR INSTRUMENT MAINTENANCE 09/29/2024 Telephone [facility] [address] [phone] Paula Peter, SHOE PATTERNMAKER, SUPERVISOR INSTRUMENT MAINTENANCE 09/29/2024 Travel from Last 3 Months Immunizations Immunization Administration Dates Next Due Influenza Vaccine, MDCK,quad rivalent, pres free 05/04/2019 Influenza Vaccine, Quadrivalent, PF 09/17,08/05/2021,04/06/2020,2017,05/08/2017 Influenza, Injectable, Quadrivalent 04/18/2016 Pneumococcal Vaccine - 13 Valent 06/07/2018 TDAP Vaccine 06/07/2018 Family History Medical History Relation Name Comments Cancer Father Cancer Mother Relation Name Status Comments Father Mother Social History Tobacco Use Types Packs/Day Years Used Date Smoking Tobacco: Former Cigarettes Smokeless Tobacco: Never Tobacco Cessation:Counseling Given: Not Answered PHQ-2 Answer Date Recorded Total Score - Questions 1-9 0 10/18 Comments Unknown Sex and Gender Information Value Date Recorded Sex Assigned at Not on file Legal Sex Female 11:14 AM CDT Gender Identity Not on file Sexual Orientation Not on file Last Filed Vital Signs Vital Sign Reading Time Taken Comments Blood Pressure 122/70 09/29/2024 9:52 AM CDT Pulse 95 09/29/2024 9:52 AM CDT Temperature 36.4 C (97.5 F) 09/29/2024 9:52 AM CDT Respiratory Rate 18 09/29/2024 9:52 AM CDT Oxygen Saturation 97% 09/29/2024 9:52 AM CDT Inhaled Oxygen Concentration - - Weight 101.4 kg (223 lb 9.6 oz) 09/29/2024 9:52 AM CDT Height 170.2 cm (5' 7 ) 09/29/2024 9:52 AM CDT Body Mass Index 35.02 09/29/2024 9:52 AM CDT Plan of Treatment Upcoming Encounters Date Type Department Care Team (Late st Contact Info) Description 11/10/2024 2:00 PM CDT Office Visit [facility] [address] [phone] MD [address] [place] [phone] Health Maintenance Due Date Last Done Comments Hepatitis B Immunization (1 of 3 - 19+ 3-dose series) 1994 Colonoscopy 01/17/2020 Colorectal Cancer Screening 01/17/2020 Td Immunization Every 10 Years (Adults With 1 Tdap) 06/07/2028 06/07/2018 Respiratory Syncytial Virus (RSV) Immunization (Adult) (1 - 1-dose 75+ series) 2050 DTaP/Tdap/Td Immunization Discontinued 06/07/2018 Discussion re Starting/Frequency of Mammograms Completed 04/20/2019 Mammogram Unilateral Discontinued 04/20/2019, 04/20/20 Hepatitis C Virus (HCV) Screening Completed 07/17/2022, 07/03/2022 Pneumococcal Immunization Combined Aged Out 07/23/2023, 06/07/2018 No longer eligibl e based on patient's age to complete this topic Influenza Immunization Completed 4, 07/23/2023, 05/27/2022, Additional history exists SARS-COV-2 Immunization Completed 06/30/20 24, 05/27/2022, 11/12/2020, Additional history exists Meningococcal Immunization (ACWY) Aged Out No longer eligible based on patient's age to complete this topic Rotavirus Immunization Aged Out No lo nger eligible based on patient's age to complete this topic Procedures Procedure Name Priority Date/Time Associated Diagnosis Comments CBC WITH AUTO DIFF OH Routine 09/29/2024 10:37 AM CDT CMP (COMPREHENSIVE METABOLIC PANEL) Routine 09/29/2024 10:37 AM CDT Iron deficiency anemia, unspecified iron deficiency anemia type Ductal carcinoma in situ (DCIS) of right breast Vitamin B12 deficiency Folic acid deficiency VITAMIN B12 Routine 09/29/2024 10:37 AM CDT Iron deficiency anemia, unspecified iron deficiency anemia type Ductal carcinoma in situ (DCIS) of right breast Vitamin B12 deficiency Folic acid deficiency FOLIC ACID (FOLATE) Routine 09/29/2024 1 0:37 AM CDT Iron deficiency anemia, unspecified iron deficiency anemia type Ductal carcinoma in situ (DCIS) of right breast Vitamin B12 deficiency Folic acid deficiency FERRITIN Routine 09/29/2024 10:37 AM CDT Iron deficiency anemia, unspecified iron deficiency anemia type Ductal carcinoma in situ (DCIS) of right breast Vitamin B12 deficiency Folic acid deficiency IRON W/ IRON BINDING CAPACITY OH Routine 09/29/2024 10:37 AM CDT Iron deficiency anemia, unspecified iron deficiency anemia type Ductal carcinoma in situ (DCIS) of right breast Vitamin B12 deficiency Folic acid deficiency from Last 3 Months Results * IRON W/ IRON BINDING CAPACITY [place] (09/29/2024 10:37 AM CDT) IRON 90 50 - 212 ug/dL [facility] UIBC 225 155 - 355 ug/dL [facility] TIBC 315 261 - 478 ug/dl [facility] % Saturation 29 20 - 50 % [facility] 09/29/2024 10:3 7 AM CDT Narrative [facility] - 09/29/2024 11:50 AM CDT Release to patient->Immediate us Paula Peter APRN, SUPERVISOR INSTRUMENT MAINTENANCE LAB SEND OUTS F inal Result [facility] [address] [place] [address], [place] [phone] * CBC WITH AUTO DIFF [place] (09/29/2024 10:37 AM CDT) WBC 8.8 4.0 - 10.0 10*3/uL [facility] HGB 14.3 11.2 - 15.7 g/dL [facility] HCT 41.7 34.1 - 44.9 % [facility] PLT 263 163 - 369 10*3/uL [facility] MPV 10.4 9.4 - 12.[address] [facility] RBC 4.75 3.93 - 5.22 10*6/uL [facility] MCV 88 79 - 95 fL [facility] MCH 30.1 25.6 - 32.[address] [facility] MCHC 34.3 32.2 - 36.5 g/dL [facility] RDW 12.4 11.6 - 14.4 % [facility] Neutrophils % 62.4 36.0 - 66.0 % [facility] Lymphocytes % 24.9 19.0 - 40.0 % [facility] Monocytes % 10.6 4.1 - 12.1 % [facility] Eosinophils % 1.1 0.0 - 3.5 % [facility] Basophils % 0.8 0.0 - 1.0 % [facility] Absolute Neutrophils 5.5 1.4 - 6.6 10*3/uL [facility] Absolute Lymphocytes 2.2 0.8 - 4.0 10*3/uL [facility] Absolute Monocytes 0.9 0.2 - 1.2 10*3/uL [facility] Absolute Eosinophils 0.1 0.0 - 0.4 10*3/uL [facility] Absolute Basophils 0.1 0.0 - 0.1 10*3/uL [facility] 09/29/2024 10:3 7 AM CDT Paula Peter SHOE PATTERNMAKER, SUPERVISOR INSTRUMENT MAINTENANCE LAB SEND OUTS F inal Result [facility] [address] [phone] * (ABNORMAL) VITAMIN B12 (09/29/2024 10:37 AM CDT) Vitamin B12 1,472(H) 180 - 914 pg/mL [facility] Blood 09/29/2024 10:3 7 AM CDT Narrative [facility] - 09/30/2024 2:40 PM CDT Release to patient->Immediate Paula Peter SHOE PATTERNMAKER, SUPERVISOR INSTRUMENT MAINTENANCE CHEMISTRY ORDERAB LES Final Result Performing Organization Address [facility] Co de Phone Number [facility] [place] [address], * FOLIC ACID (FOLATE) (09/29/2024 10:37 AM CDT) Folate 7.37 >=5.90 ng/mL [facility] Blood 09/29/2024 10:3 7 AM CDT Narrative [facility] - 09/30/2024 2:40 PM CDT Release to patient->Immediate IS THE PATIENT REQUIRED TO BE FASTING FOR 12 HOURS?->No Paula Peter SHOE PATTERNMAKER, SUPERVISOR INSTRUMENT MAINTENANCE CHEMISTRY ORDERAB LES Final Result Performing Organization Address [facility] Co de Phone Number [facility] [place] [address], [place] [phone] * FERRITIN (09/29/2024 10:37 AM CDT) Ferritin 70 11 - 307 ng/mL [facility] Blood 09/29/2024 10:3 7 AM CDT Narrative [facility] - 09/30/2024 2:40 PM CDT Release to patient->Immediate Paula Peter SHOE PATTERNMAKER, SUPERVISOR INSTRUMENT MAINTENANCE CHEMISTRY ORDERAB LES Final Result Performing Organization Address [facility] Co de Phone Number [facility] [place] [address], [place] [phone] * (ABNORMAL) CMP (COMPREHENSIVE METABOLIC PANEL) (09/29/2024 10:37 AM CDT) Glucose 87 70 - 105 mg/dL [facility] Blood Urea Nitrogen 4(L) 7 - 25 mg/dL [facility] Creatinine 0.8 0.6 - 1.2 mg/dL [facility] Sodium 129(L) 136 - 145 mEq/L [facility] Potassium 3.4(L) 3.5 - 5.1 mEq/L [facility] Chloride 97(L) 98 - 107 mEq/L [facility] Bicarbonate 30 21 - 31 mEq/L [facility] Total Bilirubin 0.5 0.3 - 1.0 mg/dL [facility] Alk. Phosphatase 110(H) 34 - 104 U/L [facility] Aspartate Aminotransferase 13 13 - 39 U/L [facility] Alanine Aminotransferase 10 7 - 52 U/L [facility] Total Protein 7.0 6.4 - 8.9 g/dL [facility] Albumin 4.4 3.5 - 5.7 g/dL [facility] Calcium 9.4 8.6 - 10.3 mg/dL [facility] Anion Gap 5.4(L) 7.0 - 15.0 mEq/L [facility] Globulin 2.6 2.0 - 3.5 g/dL [facility] EGFR 90 >60 ml/min/1. 73m2 [facility] [address] Comment: This eGFR is calculated using 2020 CKD-EPI Creatinine equation without race modifier based on the NKF-ASN task force recommendations Equation: oAKM=370*min(SCr/k,1)a*max(SCr/k,1)-1.200*0.9938Age*1.012 (if female), where SCr is serum creatinine, k is 0.7 for females and 0.9 for males, and a is -0.241 for females and -0.302 for males Blood 09/29/2024 10:3 7 AM CDT Narrative [facility] - 09/29/2024 11:52 AM CDT Release to patient->Immediate IS THE PATIENT REQUIRED TO BE FASTING FOR 8 HOURS?->No us Paula Peter SHOE PATTERNMAKER, SUPERVISOR INSTRUMENT MAINTENANCE CHEMISTRY ORDERAB LES Final Result [facility] [place] [address], from Last 3 Months Insurance MEDICAID [place] MEDICARE C AET Care Teams Hay Buckler Relationship Specialty Start Date End Date Barbara Jackman, SHOE PATTERNMAKER, SUPERVISOR INSTRUMENT MAINTENANCE [address] [place] [phone] PCP - General Internal Medicine 10/07/[address] MD [address] [place] [phone] Consulting Physician Oncology 10/07/21 Anastasia Reaves MD [address] [facility] [address] [place] [address] Internal Medicine 9/14/23
--- OUTSIDE RECORDS SUMMARY | 2024-10-12 14:41 | XMS_ITS | Encounter Summary ---
Author Organization [facility] Address [address] [address] Phone Care Team Providers Care Tape Sewing Machine Operator Name Role Phone Barbara Jackman APRN, CNP Primary Care Provider Fabian Lane MD Unavailable [phone] Anastasia Reaves MD Unavailable [phone] Encounter Details Date Type Department Care Team ([facility] Contact Info) Description 05/16/2022 Telephone [facility] [address] [phone] MD [facility] [place] [address] [address] Social History Tobacco Use Types Packs/Day Years [...] encounter Miscellaneous Notes * Telephone Encounter - Paula Kulkarni - 05/16/2022 12:10 PM CDT LVM FOR PT TO CALL CLINIC TO RESCHEDULE HER MISSED OFFICE VISIT. SENDING MISSED APPT LETTER documented in this encounter Plan of Treatment Upcoming Encounters Date Type Department Care Team (Late st Contact Info) Description 11/10/2024 2:00 PM CDT Office Visit [facility] [place] [address] [place] [address] MD [address] [facility] [address] [place] [address] documented as of this encounter Visit Diagnoses Not on filedocumented in this encounter Care Teams Tape Sewing Machine Operator Relationship Specialty Start Date End Date Barbara Jackman, CLINICAL PSYCHOLOGIST [facility], BRUSH WORKER [address] [place] [address] PCP - General Internal Medicine 10/07/[address] MD [address] [place] [phone] Consulting Physician Oncology 10/07/21 Anastasia Reaves MD [facility] [address] [place] [address] Internal Medicine 04/02/23 documented as of this encounter
--- OUTSIDE RECORDS SUMMARY | 2024-10-12 14:41 | XMS_ITS | Encounter Summary ---
Author Organization [facility] Address [address] [place] [address] Care Team Providers Care Refiner Operator Name Role Phone Barbara Jackman LORAINE Primary Care Provider [phone] Rachna Dumont APRN Unavailable Unavailab Patsy Gomez MD Unavailable [phone] Doni Fields MD Unavailable [phone] Encounter Details Date Type Department Care Team (Late st Contact Info) Description 05/13/2023 InvisibleCRM Message Enc [facility] Family & Internal Medicine [address] [address] [facility] Social History Tobacco Use Types Packs/Day Years Used Date Smoking Tobacco: Every Day Cigarettes 1 37.2 Started: 1987 Smokeless Tobacco: Never Comments:provider to rehabilitation services counselor Alcohol Use Standard Drinks/Week Comments Not Currently 0 (1 standard drink = 0.6 oz pur e alcohol) on average 3 drinks a year AUDIT-C Answer Date Recorded Frequency of Alcohol Consumption Monthly or less 06/07/2018 Average Number of Drinks Not on file 018 Frequency of Binge Drinking Not on file 05/20 PHQ-2 Answer Date Recorded Patient Health Questionnaire-2 Score 2 07/28/2022 Comments No Sex and Gender Information Value Date Recorded Sex Assigned at Female 11/14/2021 10:53 AM CDT Legal Sex Female 5:39 PM CDT Gender Identity Female 09/24/2021 11:16 AM KEY CUTTER Sexual Orientation Straight 09/24/2021 11 :16 AM KEY CUTTER documented as of this encounter Plan of Treatment Not on file documented as of this encounter Visit Diagnoses Not on filedocumented in this encounter Additional Health Concerns Assessment Noted Time PHQ-9 Depression Total Score: 12 023 9:27 AM KEY CUTTER documented as of this encounter Care Teams Refiner Operator Relationship Specialty Start Date End Date Barbara Jackman FNP [address] [place] [address] PCP - General 12/04/16 Rachna Dumont APRN [address] [place] [address] Nurse Practitioner NURSE PRACTITIONER 05/10/19 Patsy Vogt MD [address] [place] [address] Referring Physician RADIATION ONCOLOGY 05/10/19 Doni Fields MD [address] [place] [phone] ONCOLOGY 05/10/19 documented as of this encounter
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
--- OUTSIDE RECORDS SUMMARY | 2024-10-12 14:41 | XMS_ITS | Encounter Summary ---
Author Organization [facility] Address [address] [address] Phone Care Team Providers Care Laborer Bituminous Paving Name Role Phone Barbara Jackman APRN, REGISTERED ASSOCIATE Primary Care Provider Fabian Lane MD Unavailable [phone] Anastasia Reaves MD Unavailable Reason for Visit * Reason Comments Medication Refill Encounter Details Date Type Department Care Team (Late st Contact Info) Description 11/28/2023 Refill [facility] [address] [place] [address] Paula Peter APRN, REGISTERED ASSOCIATE [address] [place] [address] Medication Refill Social History Tobacco [...] Telephone Encounter - Анна Costa RN - 11/30/2023 7:49 AM CDT Refill request from pharmacy. Please fill if appropriate. documented in this encounter Plan of Treatment Upcoming Encounters Date Type Department Care Team (Late st Contact Info) Description 11/10/2024 2:00 PM CDT Office Visit [facility] [address] [place] [address] MD [address] [facility] [place] [address] documented as of this encounter Visit Diagnoses Diagnosis Iron deficiency anemia, unspecified iron deficiency anemia type documented in this encounter Care Teams Laborer [employer]uminous Paving Relationship Specialty Start Date End Date Barbara Jackman, LICENSED SOCIAL WORKER, REGISTERED ASSOCIATE [address] [place] [id number] PCP - General Internal Medicine 10/07/[address] MD [address] [place] [address] Consulting Physician Oncology 10/07/21 Anastasia Reaves MD [facility] [address] [place] [address] Internal Medicine 04/02/23 documented as of this encounter
== END 2024-10-12 13:35 | disposition home or self-care (01) ==
LOC: ANHIMG 13:35
DX: N64.4 Mastodynia (principal); D05.11 Intraductal carcinoma in situ of right breast
CPT/HCPCS: 76642

== ENCOUNTER 2024-10-17 10:58 | Outpatient (CLI) | payer MEDICARE, MEDICAID, SELFPAY ==
--- NOTE | ~2024-10-17 | CT_ITS ---
Clinical Indication: Breast cancer CT Scan of the Chest with Contrast: Technique: Contiguous sections were acquired throughout the chest after intravenous administration of 75 cc of Omnipaque 350. Dose reduction technique was used on this scan by utilizing automated exposu re control and iterative reconstruction technique. The dose-length product (DLP) was 322.39 mGy-cm. Findings: There is no evidence of any significant mediastinal, hilar or axillary lymphadenopathy. There is no f illing defect in the pulmonary arterial tree to suggest pulmonary embolus. There is no evidence of ao rtic dissection or aneurysm. There is no evidence of pleural or pericardial effusion. 6 mm left lower lobe pulmonary nodule noted (axial image 59).. Images through the upper abdomen reveal no abnormalities. Impression: 6 mm left lower lobe pulmonary nodule, nonspecific. According to Fleischner Society criteria, for a l ow-risk patient, recommend follow-up CT scan in 6-12 months, then consider additional 18-[address] For a high-risk patient, follow-up CT scans at 6-12 months and 18-24 months are recommended. Reviewed, dictated and finalized at location . Impression: 6 mm left lower lobe pulmonary nodule, nonspecific. According to Fleischner Soc iety criteria, for a low-risk patient, recommend follow-up CT scan in 6-12 rach hs, then consider additional 18-[address] For a high-risk patient, follow-up CT scans at 6-12 months and 18-24 months are recommended.
[2024-10-17 11:39] LABS: Estimated Glomerular Filt Rate 53
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
--- OUTSIDE RECORDS SUMMARY | 2024-10-17 12:34 | XMS_ITS | Encounter Summary ---
Author Organization [facility] Address [address] [place] [address] Phone Care Team Providers Care Paper Cone Machine Tender Name Role Phone Barbara Jackman APRN, CNP Primary Care Provider Fabian Lane MD Unavailable [phone] Anastasia Reaves MD Unavailable [phone] Encounter Details Date Type Department Care Team ([facility] Contact Info) Description 05/16/2022 Telephone [facility] [address] [address] MD [facility] [place] [address] [address] Social History Tobacco Use Types [...] CDT Office Visit [facility] [address] [place] [address] MD [address] [facility] [address] [place] [address] documented as of this encounter Visit Diagnoses Not on filedocumented in this encounter Care Teams Paper Cone Machine Tender Relationship Specialty Start Date End Date Barbara Jackman, PROC TECH, STUMP SHOOTER [address] [place] [address] PCP - General Internal Medicine 10/07/[address] MD [address] [place] [address] Consulting Physician Oncology 10/07/21 Anastasia Reaves MD [facility] [address] [place] [address] Internal Medicine 04/02/23 documented as of this encounter
--- OUTSIDE RECORDS SUMMARY | 2024-10-17 12:34 | XMS_ITS ---
Author Organization [facility] Address [address] [place] [address] Care Team Providers Care Outbound Call Center Representative Name Role Phone Piter Gonsales Primary Care Provider [phone] REASON FOR VISIT refill Social History Sex Assigned At : Social History Observation Description Sex Assigned At Female Encounters Encounter Location Date Provider Diagnosis [address] [place] [address] 09/01/2024 Piter Gonsales Plan Of Treatment No Information Progress Notes * Tameka MACIASDOB:1975 (49 yo F)Acc No.[id number]:09/01/2024 Patient: Tameka MEZA :1975 A ge:49 Y S ex:Female Address:[address] [place] [address] A, [place], [address] * true * Date: Generated for Mine engel/Nika/eTransmitting on: 0 10/17/2024 12:34 PM CDT
--- OUTSIDE RECORDS SUMMARY | 2024-10-17 12:34 | XMS_ITS | Referral Summary ---
Author Organization [facility] Address [facility] [place] [address] Care Team Providers Care Php Wordpress Developer Name Role Phone Barbara Jackman NP Primary Care Provider [phone] Allergies Active Allergy Reactions Criticality Noted Date [...] (01/02/2020): Added automatically from request for surgery [id number] Cyst of right breast 09/23/2019 Overview (09/23/2019): Added automatically from request for surgery [id number] Dysuria 07/13/2019 Urinary problem 07/13/2019 Numbness of [...] on file Legal Sex Female 6:58 PM [employer] DIRECTOR Gender Identity Not on file Sexual Orientation [...] on file Medical Devices Implanted Type Area Fpga Design Engineer Device Identifier Shelf Expiration Date Model / Serial / Lot Acelity Olery [id number] Alloderm Select 16x6cm Allograft Regenerative Thk.4-1.6mm Medium - [id number] - [id number] Implanted:Qty: 1 on 10/17/2019 by Maxwell Kelsey MD at [facility] Left: Breast [employer] 04/18/2021 [id number] / [id number] / [id number] Alloderm Select 16x6cm Allograft Regenerative Thk.4-1.6mm Medium - [id number]$ - [id number] Implanted:Qty: 1 on 10/17/2019 by Maxwell Kelsey MD at [facility] Right: Breast [employer] 04/18/2021 [id number] / [id number]$ / [id number] [employer] 934z-Yq-53-T Implant Mammary Natrelle Te Smooth 523e-Gh-10-T With Fourte - [id number] - [id number] Implanted:Qty: 1 on 10/17/2019 by Maxwell Kelsey MD at [facility] Right: Breast [employer] [id number] 04/18/2024 133S-MX-15 -T / [id number] / [employer] 798o-Gp-56-T Implant Mammary Natrelle Te Smooth 875q-Gz-08-T With Fourte - [id number] - [id number] Implanted:Qty: 1 on 10/17/2019 by Maxwell Kelsey MD at [facility] Left: Breast [employer] [id number] 11/30/2023 [facility]-MX-15 -T / [id number] / [employer] Ssx-800 Natrelle Inspira Smooth Xfull Profile Implant 800cc Breast - [id number] - [id number] Implanted:Qty: 1 on 01/30/2020 by Maxwell Kelsey MD at [facility] Right: Breast [employer] [id number] 11/10/2023 SSX-800 / [id number] / [id number] [employer] Ssx-800 Natrelle Inspira Smooth Xfull Profile Implant 800cc Breast - [id number] - [id number] Implanted:Qty: 1 on 01/30/2020 by Maxwell Kelsey MD at [facility] Left: Breast [employer] [id number] 06/25/2024 SSX-800 / [id number] / [id number] Insurance [employer] MEDICARE GOLD [facility] [place] [facility] Advance Directives For more information, please contact: [phone] Documents on File Type Date Recorded Patient Pharmacy Operations Specialist Expl anation ADVANCE DIRECTIVE 09/07/2019 8:37 AM Power of Furnace Process Supervisor-Medical Care Teams Php Wordpress Developer Relationship Specialty Start Date End Date Barbara Jackman NP [address] [place] [address] PCP - General Nurse Practitioner 05/04/19
--- OUTSIDE RECORDS SUMMARY | 2024-10-17 12:34 | XMS_ITS | Clinical Summary ---
Author Organization [facility] Address [address] [place] [address] Care Team Providers Care Training And Development Professional Name Role Phone Iselanicolasa Barbraa DARRON Primary Care Provider [phone] Source Comments [facility],non-owned Affiliates and Associated Physician Practices is amultiple site organization consisting of ambulatory clinics and hospital sitesin [place], [place], [place] and [place]. This disclosure is being madepursuant to the Care Everywhere program and may not contain all information available regarding this patient. Last updated 18.[facility] Allergies Active Allergy Reactions Criticality Noted Date [...] fluticasone propionate (FLONASE) 50 MCG/ACT nasal spray [place] 2 sprays into each nostril once daily [...] (09/29/2019): Added automatically from request for surgery [id number] Dysuria 07/13/2019 Numbness of upper extremity 07/13/2019 [...] Immunizations Name Administration Dates Next Due Covid Fashion GPS primary monoval ent 12+ yr 0.3mL Purple [...] 36.3 C (97.3 F) 08/05/2020 8:13 AM GOLF PROFESSIONAL Respiratory Rate 18 08/05/2020 8:13 AM GOLF PROFESSIONAL Oxygen Saturation 100% 08/05/2020 8:13 AM GOLF PROFESSIONAL Inhaled Oxygen Concentration - - Weight 112.9 kg (249 lb) 03/27/2021 4:00 PM CDT Height 170.2 cm (5' 7 ) 08/02/2020 3:53 PM GOLF PROFESSIONAL Body Mass Index 39 08/02/2020 3:53 PM GOLF PROFESSIONAL Plan of Treatment Health Maintenance Due Date [...] HIV-1 HIV-2 ANTIGEN/ANTIBODY STAT 08/02/2020 5:09 PM GOLF PROFESSIONAL from Last 3 Months or Most Recently Relevant to Health Maintenance Results * HIV-1 HIV-2 ANTIGEN/ANTIBODY (08/02/2020 5:09 PM GOLF PROFESSIONAL) HIV Antigen/Antibod y 1 & 2 Non-reacti ve Non-react sally 08/02/2020 6:13 PM GOLF PROFESSIONAL [facility] Comment:Neither HIV-1 p24 An tigen nor HIV-1/HIV-2 Antibodies are detected. Blood BLOOD SPECIMEN / Unknown Venipuncture / Unknown 08/02/2020 5:09 PM GOLF PROFESSIONAL 08/02/2020 5:40 PM GOLF PROFESSIONAL Shabbir Peace MD LAB - HEMATOLOGY ORD ERABLES [facility] [address] [place] [address], [facility] [phone] from Last 3 Months or Most Recently Relevant to Health Maintenance Advance Directives Documents on File Type Date Recorded Patient Registered Nurse Cardiac Expl anation Adv Directive/Living Will/POA 03/28/2021 8:58 AM STATUTORY SHORT FORM POA FOR HLTHCARE * Full Code (Latest Code Status on File) Date Activated Date Inactivated Comments 08/03/2020 2:41 AM 08/05/2020 2:57 PM * Full Code Date Activated Date Inactivated Comments 09/29/2018 11:46 AM 10/03/2018 7:28 PM Care Teams Training And Development Professional Relationship Specialty Start Date End Date Barbara Jackman APRN-MARLENE [address] [place] [address] PCP - General Nurse Practitioner 09/29/18
--- OUTSIDE RECORDS SUMMARY | 2024-10-17 12:34 | XMS_ITS | Encounter Summary ---
Author Organization [facility] Address [address] [address] Phone Care Team Providers Care Manager Reporting Name Role Phone Barbara Jacmkan APRN, CNP Primary Care Provider Fabian Lane MD Unavailable [phone] Anastasia Reaves MD Unavailable [phone] Reason for Referral * Radiology Services (Routine) - Closed Specialty Diagnoses / Procedures Referred By Jyoti avila Referred To Contact Radiology Diagnoses Ductal carcinoma in situ (DCIS) of right breast Procedures CT CHEST W CONTRAST Paula Peter APRN, CNP [address] [place] [address] Phone: tel: fax: Referral ID Status Reason Start Date Expiration Date Visits Re quested Visits Authorized [id number] Closed 09/29/2024 1 1 Encounter Details Date Type Department Care Team (Late st Contact Info) Description 09/29/2024 Telephone [facility] [address] [address] Paula Peter APRN, CNP [address] [place] [address] Social History Tobacco Use Types Packs/Day [...] CDT Office Visit [facility] [address] [phone] Fabian Lane MD [address] [place] [address] Scheduled Orders Name Type Priority Associated Diagnoses Orde r Schedule CT CHEST W CONTRAST Imaging Routine Ductal carcinoma in situ (DCIS) of right breast Expected: 11/16/2024, Expires: 11/16/2024 documented as of this encounter Visit Diagnoses Diagnosis Ductal carcinoma in situ (DCIS) of right breast- Primary documented in this encounter Care Teams Manager Reporting Relationship Specialty Start Date End Date Barbara Jackman, ASSISTANT PROFESSOR OF BIOCHEMISTRY, SURVEYOR GEODETIC [address] [place] [address] PCP - General Internal Medicine 10/07/[address] MD [address] [place] [phone] Consulting Physician Oncology 10/07/21 Anastasia Reaves MD [address] [place] [address] [address] [place] [address] Internal Medicine 04/02/23 documented as of this encounter
--- OUTSIDE RECORDS SUMMARY | 2024-10-17 12:34 | XMS_ITS | Encounter Summary ---
Author Organization [facility] Address [address] [place] [place] [address] Phone Care Team Providers Care Control Valve Technician Name Role Phone Barbara Jackman APRN, MEDICAL DIRECTOR OF HOSPICE Primary Care Provider Fabian Lane MD Unavailable [phone] Anastasia Reaves MD Unavailable [phone] Reason for Visit * Reason Comments Medication Refill Encounter Details Date Type Department Care Team (Late st Contact Info) Description 11/10/2023 Refill [facility] [address] [place] [address] Paula Peter APRN, MEDICAL DIRECTOR OF HOSPICE [address] [place] [address] Medication Refill Social History Tobacco [...] CDT Office Visit [facility] [address] [place] [address] MD [address] [facility] [address] [place] [address] documented as of this encounter Visit Diagnoses Not on filedocumented in this encounter Care Teams Control Valve Technician Relationship Specialty Start Date End Date Barbara Jackman, TENNIS PLAYER, MEDICAL DIRECTOR OF HOSPICE [address] [place] [address] PCP - General Internal Medicine 10/07/[address] MD [address] [place] [phone] Consulting Physician Oncology 10/07/21 Anastasia Reaves MD [address] [facility] [address] [place] [address] Internal Medicine 04/02/23 documented as of this encounter
--- OUTSIDE RECORDS SUMMARY | 2024-10-17 12:34 | XMS_ITS ---
Author Organization [facility] Address [address] [place] [address] Care Team Providers Care Media Promoter Name Role Phone Piter Gonsales Primary Care [...] Female Encounters Encounter Location Date Provider Diagnosis [address] [address] 09/07/2024 Piter Gonsales Bipolar I disorder, moderate, [...] number to the 24-hour crisis line at [facility]. Questions addressed. Client verbalized understanding of all [...] number to the 24-hour crisis line at [facility]. Questions addressed. Client verbalized understanding of all information and is agreeable to treatment plan. Next Appt Details Follow Up: 4 Weeks, Reason: Medication management - can be telehealth appt. Progress Notes * Tameka MACIASDOB:1975 (49 yo F)Acc No.[id number]:09/07/2024 Patient: Lynette LEWIS Tameka Provider: Ange Gonsales DNP, PMHNP-BC :1975 A ge:49 Y S ex:Female Date:09/07/2024 [facility] Subjective: * Chief Complaints: * 4 week [...] I nterpretation M oderate Depression. S creening: Perkins Suicide Severity Rating Scale (LF) D o [...] every three weeks - Lala out of [facility]. The client receives klonopin, baclofen, ambien, and [...] exercise. That her dog loves going to [employer]. States her dog Sandra is doing good. [...] of my insurance. I was going through [facility]. Dr. Lovett at [facility] was last psychiatrist. I was sexually [...] Hospitalizations (inpatient/rehab/IOP): Earlier this year, September 2021, [facility] I start thinking about hurting myself and start thinking about a plan. So many other times I can't tell you how many times. Medication trials: Aripiprazole, quetiapine, venlafaxine, and a bunch of stuff I don't remember Medication Adherence: Yes Medication efficacy: Mostly Psychotherapy: Yes [facility] [place] on/off 6 [facility]. Working on forgiving self right now Now seeing Sarah at [facility]. Suicide attempts: Yes, states several attempts. 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 . * Social History[facility] Social History: L iving Arrangement L iving [...] number to the 24-hour crisis line at [facility]. Questions addressed. Client verbalized understanding of all information and is agreeable to treatment plan.? * Procedure Codes: G 8431 CLIN DEPRESSION SCREEN DOC * Follow Up: 4 Weeks (Reason: Medication management - can be telehealth appt.) * * STITCH SLEEVE SETTER Sign off status: Completed true * Provider: Ange Gonsales DNP, PMHNP- Date: 0 09/07/2024 Generated for Mine engel/Nika/Mitraransmitting on: 0 10/17/2024 12:34 PM CDT History and Physical Notes * [...] involved in behavioral health treatment . Screening Perkins Suicide Sev erity Rating Scale (LF) Do [...]
--- OUTSIDE RECORDS SUMMARY | 2024-10-17 12:34 | XMS_ITS | Encounter Summary ---
Author Organization [facility] Address [address] [place] [address] Phone Care Team Providers Care Traditional Maori Health Practitioner Name Role Phone Barbara Jackman APRN, PHOTO EDITOR Primary Care Provider Fabian Lane MD Unavailable [phone] Anastasia Reaves MD Unavailable [phone] Reason for Visit * Reason Comments Medication Refill Encounter Details Date Type Department Care Team (Late st Contact Info) Description 11/28/2023 Refill [facility] [address] [place] [address] Paula Peter APRN, PHOTO EDITOR [address] [place] [address] Medication Refill Social History Tobacco [...] CDT Office Visit [facility] [address] [place] [address] MD [address] [facility] [address] [place] [address] documented as of this encounter Visit Diagnoses Diagnosis Iron deficiency anemia, unspecified iron deficiency anemia type documented in this encounter Care Teams Traditional Maori Health Practitioner Relationship Specialty Start Date End Date Barbara Jackman, OIL INSPECTOR, PHOTO EDITOR [address] [place] [address] PCP - General Internal Medicine 10/07/[address] MD [address] [place] [phone] Consulting Physician Oncology 10/07/21 Anastasia Reaves MD [facility] [address] [place] [address] Internal Medicine 04/02/23 documented as of this encounter
--- OUTSIDE RECORDS SUMMARY | 2024-10-17 12:34 | XMS_ITS | Patient Health Record ---
Author Organization [facility] Address [address] [place] [address] Care Team Providers Care College Teacher Name Role Phone Dru Piter Primary Care Provider Chidi Mendez Unavailable [phone] Halima Yen Unavailable [phone] Allergies Allergen (clinical drug ingredient) Drug/Non Drug [...] venlafaxine Venlafaxine Unknown Drug Allergy Act sally Results Component Value Reference Range Notes Occult Blood, Fecal, IA ([id number]) Reviewed date:05/31/2024 08:53:43 AM Interpretation: Performing Lab:[facility], [address] [facility], Phone - [phone], Director - PhDRicchifli Notes/Report: Occult Blood, Fecal, [place] Negative Negative Please note The date and/or time of collection was not indicated on the requisition as required by state and federal law. The date of receipt of the specimen was used as the collection date if not supplied. Reason For Referral Reason Warm hand off for f/ u - pHQ-9 of 14. 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 Consumer is in agreement with referral. Staff MARC presents Consumer options to address need. Consumer ops to getting reconnected to therapy services. Staff MARC provides Consumer information on how to get connected with [facility] program. When asked, Consumer is in agreement with getting connected to [facility] to begin process. Consumer transferred. Referral addressed, closing. Referral Priority Routine Medications Medication SIG (Take, Route, Frequency, Duration) Notes Start Date End Date Status Haloperidol 0.5 MG 1 tablet in am, 2 tablets at bedtime Orally Once a day Refilled 08-01-2024 05/12/2024 Active Baclofen 20 MG 1 tablet Administer without regards to meals as needed Orally Twice a day Active Lansoprazole 15 MG 1 capsule before a meal Orally Once a day for 30 day(s) Active Prazosin HCl 5 MG 1 capsule at bedtime Refilled 08-01-2024 Active clonazePAM 1 MG 1 tablet Orally Once a day Twice a day Active Dicyclomine HCl 20 MG 1 tablet Orally Three times a day for 30 day(s) Not-Taking Albuterol Sulfate Ac tive hydroCHLOROthiazide Active Atorvastatin Calcium 10 MG 1 tablet Orally Once a day for 30 day(s) Active Cetirizine HCl 10 MG 1 tablet Orally Once a day for 30 day(s) Active Lactulose 10 GM/15ML 15 mL Orally Once a day Gi Doctor Active SUMAtriptan Active Narcan 4 MG/0.1ML as directed Nasally Active Fluticasone Furoate Active Varenicline Tartrate 1 MG as directed Orally Taking 2 mg now Active Montelukast Sodium 10 MG 1 tablet Orally Once a day for 30 day(s) Active Sucralfate 1 GM 1 tablet on an empty stomach Orally Twice a day GI doctor Active Ondansetron 4 MG 1 tablet on the tongue and allow to dissolve Orally Once a day for 30 day(s) Active lamoTRIgine 200 MG 1 tablet Orally Twice a day Refilled 08-01-2024 Active Lurasidone HCl 120 MG 1 tablet in the evening with food Orally Once a day Refilled 08-01-2024 (90 day fills for client) Active Atomoxetine HCl 25 MG 1 capsule in the morning Orally Once a day Refilled 08-01-2024 Active Fluticasone Propionate 50 MCG/ACT 1 spray in each nostril Nasally Once a day for 30 day(s) Active HYDROCODONE Active Ibuprofen 800 MG 1 tablet with food or milk as needed Orally every 8 hrs Active Social History Tobacco Use: Social History Observation Description Date Details (start date - stop date) Current Smoker NA - NA Sex Assigned At : Social History Observation Description Sex Assigned At Female Dont use, Tobacco Use/Smoking Question Answer Notes Are you a heavy tobacco smoker Additional Findings: Tobacco User Very heavy cig arette smoker (40+ cigs/day) Tobacco Control (Standard) Question Answer Notes Tobacco use: Current every day smoker Additional Findings: Tobacco user Heavy cigarett e smoker (20-39 cigs/day) Problems Problem Type SNOMED Code ICD Code Onset Dates Problem Status W/U Status Risk Notes Problem Posttraumatic stress disorder (19275564) PTSD (post-traumatic stress disorder) (F43.10) Active confirmed Problem Chronic pain (23250971) Chronic pain (G89.29) Active confirmed Problem Concentration deficit (R41.840) Active confirmed Problem Insomnia (596009090) 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) Active confirmed Problem Bipolar affective disorder, currently depressed, moderate (744216417) Bipolar I disorder, moderate, current or most recent episode depressed, with anxious distress (F31.32) Active confirmed Vital Signs Heart Rate 95 /min 05/12/2024 Temperature 97.3 degrees Fahrenheit 05/12/2024 Respiratory Rate 18 /min 05/12/2024 Blood pressure diastolic 76 mm Hg 05/12/2024 Oximetry 98 % 05/12/2024 Height 67 in 05/12/2024 Blood pressure systolic 118 mm Hg 05/12/2024 Weight 224.6 lbs 05/12/2024 BMI 35.17 kg/m2 05/12/2024 Encounters Encounter Location Date Provider Diagnosis [address] [place] [address] 10/27/2023 Piter Gonsales Bipolar I disorder, moderate, current or most recent episode depressed, with anxious distress F31.32 ; PTSD (post-traumatic stress disorder) F43.10 ; Insomnia disorder with non-sleep disorder mental comorbidity G47.00 and Chronic pain G89.[address] [address] 11/24/2023 Piter Gonsales Bipolar I disorder, moderate, current or most recent episode depressed, with anxious distress F31.32 ; PTSD (post-traumatic stress disorder) F43.10 and Insomnia disorder with non-sleep disorder mental comorbidity G47.[address] [address] 12/24/2023 Piter Gonsales Concentration defici t R41.840 ; Bipolar I disorder, moderate, current or most recent episode depressed, with anxious distress F31.32 ; PTSD (post-traumatic stress disorder) F43.10 ; Insomnia disorder with non-sleep disorder mental comorbidity G47.00 and Chronic pain G89.[address] [address] 01/20/2024 Piter Gonsales Bipolar I disorder, moderate, current or most recent episode depressed, with anxious distress F31.32 ; PTSD (post-traumatic stress disorder) F43.10 ; Insomnia disorder with non-sleep disorder mental comorbidity G47.00 ; Chronic pain G89.29 and Concentration deficit R41.[address] [address] 03/30/2024 Piter Gonsales Bipolar I disorder, moderate, current or most recent episode depressed, with anxious distress F31.32 ; PTSD (post-traumatic stress disorder) F43.10 ; Insomnia disorder with non-sleep disorder mental comorbidity G47.00 and Concentration deficit R41.[address] [address] 05/12/2024 Piter Gonsales Bipolar I disorder, moderate, current or most recent episode depressed, with anxious distress F31.32 ; PTSD (post-traumatic stress disorder) F43.10 ; Insomnia disorder with non-sleep disorder mental comorbidity G47.00 ; Chronic pain G89.29 and Concentration deficit R41.[address] [address] 05/24/2024 Piter Gonsales Bipolar I disorder, moderate, current or most recent episode depressed, with anxious distress F31.32 ; PTSD (post-traumatic stress disorder) F43.10 ; Insomnia disorder with non-sleep disorder mental comorbidity G47.00 and Concentration deficit R41.[address] [address] 06/14/2024 Piter Gonsales Bipolar I disorder, moderate, current or most recent episode depressed, with anxious distress F31.32 ; PTSD (post-traumatic stress disorder) F43.10 ; Insomnia disorder with non-sleep disorder mental comorbidity G47.00 and Concentration deficit R41.[address] [address] 08/01/2024 Piter Gonsales Bipolar I disorder, moderate, current or most recent episode depressed, with anxious distress F31.32 ; PTSD (post-traumatic stress disorder) F43.10 and Concentration deficit R41.[address] [address] 09/07/2024 Piter Gonsales Bipolar I disorder, moderate, current or most recent episode depressed, with anxious distress F31.32 ; PTSD (post-traumatic stress disorder) F43.10 ; Insomnia disorder with non-sleep disorder mental comorbidity G47.00 and Concentration deficit R41.[address] [address] 10/27/2023 Piter Gonsales Encounter for screening for malignant neoplasm of cervix Z12.[address] [address] 10/28/2023 Halima Yen [address] [address] 12/29/2023 Piter Gonsales [address] [address] 03/28/2024 Piter Gonsales Concentration defici t R41.[address] [address] 05/04/2024 Piter Gonsales [address] [place] [address] 05/12/2024 Chidi Acuñaner Encounter for screening for malignant neoplasm of colon Z12.11 [address] [place] [address] 07/28/2024 Piter Gonsales Bipolar I disorder, moderate, current or most recent episode depressed, with anxious distress F31.[address] [facility] [address] 09/01/2024 Piter Gonsales Assessments Encounter Date Diagnosis (ICD Code) Assessment Notes Treatment Notes Treatment Clinical Notes Section Notes 10/27/2023 Bipolar I disorder, moderate, current or most recent episode depressed, with anxious distress (ICD-10 - F31.32) Client's and c consultant c/o client having increase in sedation and memory issues since starting Chantix from PCP. Client also with increase in depression recently. Encouraged group to call PCP's office and discuss with provider what to do. Recommend client either come off Chantix completely or at least do a dose reduction by 50% and discussed this with client and her family. Client is currently on many different medications from many different providers, several highly sedating and this has been discussed in the past; how dangerous this can be and that these sedative agents need to be used with care. Provider recommended that client bring these memory issues up with provider that is prescribing Klonopin (this provider refuses to prescribe given other medications client takes) and discuss a gradual weaning to improve memory. Will continue to provide psychoeducation regarding polypharmacy and any ways to limit this without impacting client negatively. 10/27/2023 Encounter for screening for malignant neoplasm of cervix (ICD-10 - Z12.4) Patient Educated with: Learning about Cervical Cancer Screenings.pdf (Learning about Cervical Cancer Screenings.pdf) 11/24/2023 Bipolar I disorder, moderate, current or most recent episode depressed, with anxious distress (ICD-10 - F31.32) Client with improvement from last session. No changes to treatment plan at this time. Next appointment to be in office. 12/24/2023 Concentration deficit (ICD-10 - R41.840) Latuda 20 mg stopped due to lack of effect and to simiply treatment plan. Luvox discontinued to limit sedative burden on client and replaced with Strattera to help with cognitive fogging. Client encouraged to taper down and simply her chronic pain treatment pain if possible to further improve her cognitive fogging and c/o fatigue. This is a discussion she plans to have with her PCP. Encouraged other forms of pain control including meditation, paresh chi, and physical therapy. 12/24/2023 Bipolar I disorder, moderate, current or most recent episode depressed, with anxious distress (ICD-10 - F31.32) Latuda 20 mg stopped due to lack of effect and to simiply treatment plan. Luvox discontinued to limit sedative burden on client and replaced with Strattera to help with cognitive fogging. Client encouraged to taper down and simply her chronic pain treatment pain if possible to further improve her cognitive fogging and c/o fatigue. This is a discussion she plans to have with her PCP. Encouraged other forms of pain control including meditation, paresh chi, and physical therapy. 01/20/2024 Bipolar I disorder, moderate, current or most recent episode depressed, with anxious distress (ICD-10 - F31.32) Client doing wel l with change from Luvox to Strattera, less cognitive fogging, more physically active. No treatment plan changes at this time. 03/28/2024 Concentration deficit (ICD-10 - R41.840) 03/30/2024 Bipolar I disorder, moderate, current or most recent episode depressed, with anxious distress (ICD-10 - F31.32) States that client has been working with her PCP provider to cut back on sedative agents. PCP, who writes for pain control agents, is taking control of gabapentin, so that all sedative agents are under privy of one provider. Client states her next fill on clonazepam will be cut by 50% and that her goal is to limit polypharmacy as much as possible. Client weaning off Chantix, weaning off gabapentin, slowly weaning down on Klonopin. Sounds more alert, more cheerful. Encouraged client to continue in these efforts and pointed out the positive changes she is making in her day to day life as a result. 05/12/2024 Bipolar I disorder, moderate, current or most recent episode depressed, with anxious distress (ICD-10 - F31.32) Client agreeable to meet with crisis team for additional resources and support. Also agreeable to trial of haldol to assist with anger/irritabilit y. No other changes to treatment plan at this time but will f/u with client in 2 weeks to check on status and crisis to do support calls daily. 05/12/2024 Encounter for screening for malignant neoplasm of colon (ICD-10 - Z12.11) Patient Educated with: Colon Cancer Screening Care Instructions.pdf (Colon Cancer Screening Care Instructions.pdf) Patient Educated with: Fecal Occult Blood Test.pdf (Fecal Occult Blood Test.pdf) Patient Educated with: Colonoscopy - Learning about.pdf (Colonoscopy - Learning about.pdf) 05/24/2024 Bipolar I disorder, moderate, current or most recent episode depressed, with anxious distress (ICD-10 - F31.32) Client agreeable to increase in haldol to further stabilize anger/mood swings. 06/14/2024 Bipolar I disorder, moderate, current or most recent episode depressed, with anxious distress (ICD-10 - F31.32) 07/28/2024 Bipolar I disorder, moderate, current or most recent episode depressed, with anxious distress (ICD-10 - F31.32) 08/01/2024 Bipolar I disorder, moderate, current or most recent episode depressed, with anxious distress (ICD-10 - F31.32) Went over coping skills for anger management. No changes to treatment plan as increased depression likely r/t what client is working through in therapy. 09/07/2024 Bipolar I disorder, moderate, current or most recent episode depressed, with anxious distress (ICD-10 - F31.32) 09/07/2024 PTSD (post-traumatic stress disorder) (ICD-10 - F43.10) 08/01/2024 PTSD (post-traumatic stress disorder) (ICD-10 - F43.10) Went over coping skills for anger management. No changes to treatment plan as increased depression likely r/t what client is working through in therapy. 06/14/2024 PTSD (post-traumatic stress disorder) (ICD-10 - F43.10) 05/24/2024 PTSD (post-traumatic stress disorder) (ICD-10 - F43.10) Client agreeable to increase in haldol to further stabilize anger/mood swings. 05/12/2024 PTSD (post-traumatic stress disorder) (ICD-10 - F43.10) Client agreeable to meet with crisis team for additional resources and support. Also agreeable to trial of haldol to assist with anger/irritabilit y. No other changes to treatment plan at this time but will f/u with client in 2 weeks to check on status and crisis to do support calls daily. 03/30/2024 PTSD (post-traumatic stress disorder) (ICD-10 - F43.10) States that client has been working with her PCP provider to cut back on sedative agents. PCP, who writes for pain control agents, is taking control of gabapentin, so that all sedative agents are under privy of one provider. Client states her next fill on clonazepam will be cut by 50% and that her goal is to limit polypharmacy as much as possible. Client weaning off Chantix, weaning off gabapentin, slowly weaning down on Klonopin. Sounds more alert, more cheerful. Encouraged client to continue in these efforts and pointed out the positive changes she is making in her day to day life as a result. 01/20/2024 PTSD (post-traumatic stress disorder) (ICD-10 - F43.10) Client doing wel l with change from Luvox to Strattera, less cognitive fogging, more physically active. No treatment plan changes at this time. 12/24/2023 PTSD (post-traumatic stress disorder) (ICD-10 - F43.10) Latuda 20 mg stopped due to lack of effect and to simiply treatment plan. Luvox discontinued to limit sedative burden on client and replaced with Strattera to help with cognitive fogging. Client encouraged to taper down and simply her chronic pain treatment pain if possible to further improve her cognitive fogging and c/o fatigue. This is a discussion she plans to have with her PCP. Encouraged other forms of pain control including meditation, paresh chi, and physical therapy. 11/24/2023 PTSD (post-traumatic stress disorder) (ICD-10 - F43.10) Client with improvement from last session. No changes to treatment plan at this time. Next appointment to be in office. 10/27/2023 PTSD (post-traumatic stress disorder) (ICD-10 - F43.10) Client's and c consultant c/o client having increase in sedation and memory issues since starting Chantix from PCP. Client also with increase in depression recently. Encouraged group to call PCP's office and discuss with provider what to do. Recommend client either come off Chantix completely or at least do a dose reduction by 50% and discussed this with client and her family. Client is currently on many different medications from many different providers, several highly sedating and this has been discussed in the past; how dangerous this can be and that these sedative agents need to be used with care. Provider recommended that client bring these memory issues up with provider that is prescribing Klonopin (this provider refuses to prescribe given other medications client takes) and discuss a gradual weaning to improve memory. Will continue to provide psychoeducation regarding polypharmacy and any ways to limit this without impacting client negatively. 11/24/2023 Insomnia disorder with non-sleep disorder mental comorbidity (ICD-10 - G47.00) Client with improvement from last session. No changes to treatment plan at this time. Next appointment to be in office. 12/24/2023 Insomnia disorder with non-sleep disorder mental comorbidity (ICD-10 - G47.00) Latuda 20 mg stopped due to lack of effect and to simiply treatment plan. Luvox discontinued to limit sedative burden on client and replaced with Strattera to help with cognitive fogging. Client encouraged to taper down and simply her chronic pain treatment pain if possible to further improve her cognitive fogging and c/o fatigue. This is a discussion she plans to have with her PCP. Encouraged other forms of pain control including meditation, paresh chi, and physical therapy. 10/27/2023 Insomnia disorder with non-sleep disorder mental comorbidity (ICD-10 - G47.00) Client's and c consultant c/o client having increase in sedation and memory issues since starting Chantix from PCP. Client also with increase in depression recently. Encouraged group to call PCP's office and discuss with provider what to do. Recommend client either come off Chantix completely or at least do a dose reduction by 50% and discussed this with client and her family. Client is currently on many different medications from many different providers, several highly sedating and this has been discussed in the past; how dangerous this can be and that these sedative agents need to be used with care. Provider recommended that client bring these memory issues up with provider that is prescribing Klonopin (this provider refuses to prescribe given other medications client takes) and discuss a gradual weaning to improve memory. Will continue to provide psychoeducation regarding polypharmacy and any ways to limit this without impacting client negatively. 01/20/2024 Insomnia disorder with non-sleep disorder mental comorbidity (ICD-10 - G47.00) Client doing wel l with change from Luvox to Strattera, less cognitive fogging, more physically active. No treatment plan changes at this time. 03/30/2024 Insomnia disorder with non-sleep disorder mental comorbidity (ICD-10 - G47.00) States that client has been working with her PCP provider to cut back on sedative agents. PCP, who writes for pain control agents, is taking control of gabapentin, so that all sedative agents are under privy of one provider. Client states her next fill on clonazepam will be cut by 50% and that her goal is to limit polypharmacy as much as possible. Client weaning off Chantix, weaning off gabapentin, slowly weaning down on Klonopin. Sounds more alert, more cheerful. Encouraged client to continue in these efforts and pointed out the positive changes she is making in her day to day life as a result. 05/12/2024 Insomnia disorder with non-sleep disorder mental comorbidity (ICD-10 - G47.00) Client agreeable to meet with crisis team for additional resources and support. Also agreeable to trial of haldol to assist with anger/irritabilit y. No other changes to treatment plan at this time but will f/u with client in 2 weeks to check on status and crisis to do support calls daily. 05/24/2024 Insomnia disorder with non-sleep disorder mental comorbidity (ICD-10 - G47.00) Client agreeable to increase in haldol to further stabilize anger/mood swings. 06/14/2024 Insomnia disorder with non-sleep disorder mental comorbidity (ICD-10 - G47.00) 08/01/2024 Concentration deficit (ICD-10 - R41.840) Went over coping skills for anger management. No changes to treatment plan as increased depression likely r/t what client is working through in therapy. 09/07/2024 Insomnia disorder with non-sleep disorder mental comorbidity (ICD-10 - G47.00) 09/07/2024 Concentration deficit (ICD-10 - R41.840) 06/14/2024 Concentration deficit (ICD-10 - R41.840) 05/24/2024 Concentration deficit (ICD-10 - R41.840) Client agreeable to increase in haldol to further stabilize anger/mood swings. 03/30/2024 Concentration deficit (ICD-10 - R41.840) States that client has been working with her PCP provider to cut back on sedative agents. PCP, who writes for pain control agents, is taking control of gabapentin, so that all sedative agents are under privy of one provider. Client states her next fill on clonazepam will be cut by 50% and that her goal is to limit polypharmacy as much as possible. Client weaning off Chantix, weaning off gabapentin, slowly weaning down on Klonopin. Sounds more alert, more cheerful. Encouraged client to continue in these efforts and pointed out the positive changes she is making in her day to day life as a result. 05/12/2024 Chronic pain (ICD-10 - G89.29) Client agreeable to meet with crisis team for additional resources and support. Also agreeable to trial of haldol to assist with anger/irritabilit y. No other changes to treatment plan at this time but will f/u with client in 2 weeks to check on status and crisis to do support calls daily. 12/24/2023 Chronic pain (ICD-10 - G89.29) Latuda 20 mg stopped due to lack of effect and to simiply treatment plan. Luvox discontinued to limit sedative burden on client and replaced with Strattera to help with cognitive fogging. Client encouraged to taper down and simply her chronic pain treatment pain if possible to further improve her cognitive fogging and c/o fatigue. This is a discussion she plans to have with her PCP. Encouraged other forms of pain control including meditation, paresh chi, and physical therapy. 01/20/2024 Chronic pain (ICD-10 - G89.29) Client doing wel l with change from Luvox to Strattera, less cognitive fogging, more physically active. No treatment plan changes at this time. 10/27/2023 Chronic pain (ICD-10 - G89.29) Client's and c consultant c/o client having increase in sedation and memory issues since starting Chantix from PCP. Client also with increase in depression recently. Encouraged group to call PCP's office and discuss with provider what to do. Recommend client either come off Chantix completely or at least do a dose reduction by 50% and discussed this with client and her family. Client is currently on many different medications from many different providers, several highly sedating and this has been discussed in the past; how dangerous this can be and that these sedative agents need to be used with care. Provider recommended that client bring these memory issues up with provider that is prescribing Klonopin (this provider refuses to prescribe given other medications client takes) and discuss a gradual weaning to improve memory. Will continue to provide psychoeducation regarding polypharmacy and any ways to limit this without impacting client negatively. 01/20/2024 Concentration deficit (ICD-10 - R41.840) Client doing wel l with change from Luvox to Strattera, less cognitive fogging, more physically active. No treatment plan changes at this time. 05/12/2024 Concentration deficit (ICD-10 - R41.840) Client agreeable to meet with crisis team for additional resources and support. Also agreeable to trial of haldol to assist with anger/irritabilit y. No other changes to treatment plan at this time but will f/u with client in 2 weeks to check on status and crisis to do support calls daily. 10/27/2023 Other Discussed sleep hygiene and caffeine intake [...] number to the 24-hour crisis line at [facility]. Questions addressed. Client verbalized understanding of all information and is agreeable to treatment plan. Client's and c consultant c/o client having increase in sedation and memory issues since starting Chantix from PCP. Client also with increase in depression recently. Encouraged group to call PCP's office and discuss with provider what to do. Recommend client either come off Chantix completely or at least do a dose reduction by 50% and discussed this with client and her family. Client is currently on many different medications from many different providers, several highly sedating and this has been discussed in the past; how dangerous this can be and that these sedative agents need to be used with care. Provider recommended that client bring these memory issues up with provider that is prescribing Klonopin (this provider refuses to prescribe given other medications client takes) and discuss a gradual weaning to improve memory. Will continue to provide psychoeducation regarding polypharmacy and any ways to limit this without impacting client negatively. 11/24/2023 Other Discussed sleep hygiene and caffeine intake [...] number to the 24-hour crisis line at [facility]. Questions addressed. Client verbalized understanding of all information and is agreeable to treatment plan. Client with improvement from last session. No changes to treatment plan at this time. Next appointment to be in office. 12/24/2023 Other Discussed sleep hygiene and caffeine intake [...] number to the 24-hour crisis line at [facility]. Questions addressed. Client verbalized understanding of all information and is agreeable to treatment plan. Latuda 20 mg stopped due to lack of effect and to simiply treatment plan. Luvox discontinued to limit sedative burden on client and replaced with Strattera to help with cognitive fogging. Client encouraged to taper down and simply her chronic pain treatment pain if possible to further improve her cognitive fogging and c/o fatigue. This is a discussion she plans to have with her PCP. Encouraged other forms of pain control including meditation, paresh chi, and physical therapy. 01/20/2024 Other Discussed sleep hygiene and caffeine intake [...] number to the 24-hour crisis line at [facility]. Questions addressed. Client verbalized understanding of all information and is agreeable to treatment plan. Client doing well with change from Luvox to Strattera, less cognitive fogging, more physically active. No treatment plan changes at this time. 03/30/2024 Other Discussed sleep hygiene and caffeine intake [...] number to the 24-hour crisis line at [facility]. Questions addressed. Client verbalized understanding of all information and is agreeable to treatment plan. States that client has been working with her PCP provider to cut back on sedative agents. PCP, who writes for pain control agents, is taking control of gabapentin, so that all sedative agents are under privy of one provider. Client states her next fill on clonazepam will be cut by 50% and that her goal is to limit polypharmacy as much as possible. Client weaning off Chantix, weaning off gabapentin, slowly weaning down on Klonopin. Sounds more alert, more cheerful. Encouraged client to continue in these efforts and pointed out the positive changes she is making in her day to day life as a result. 05/12/2024 Other Discussed sleep hygiene and caffeine intake [...] number to the 24-hour crisis line at [facility]. Questions addressed. Client verbalized understanding of all information and is agreeable to treatment plan. Client agreeable to meet with crisis team for additional resources and support. Also agreeable to trial of haldol to assist with anger/irritabilit y. No other changes to treatment plan at this time but will f/u with client in 2 weeks to check on status and crisis to do support calls daily. 05/24/2024 Other Discussed sleep hygiene and caffeine intake [...] number to the 24-hour crisis line at [facility]. Questions addressed. Client verbalized understanding of all information and is agreeable to treatment plan. Client agreeable to increase in haldol to further stabilize anger/mood swings. 06/14/2024 Other Discussed sleep hygiene and caffeine intake [...] number to the 24-hour crisis line at [facility]. Questions addressed. Client verbalized understanding of all information and is agreeable to treatment plan. 08/01/2024 Other Discussed sleep hygiene and caffeine [...] number to the 24-hour crisis line at [facility]. Questions addressed. Client verbalized understanding of all information and is agreeable to treatment plan. Went over coping skills for anger management. No changes to treatment plan as increased depression likely r/t what client is working through in therapy. 09/07/2024 Other Discussed sleep hygiene and caffeine [...] number to the 24-hour crisis line at [facility]. Questions addressed. Client verbalized understanding of all information and is agreeable to treatment plan. Plan Of Treatment No Information Insurance Providers Payer Name Payer Address Payer Phone Subscriber Number Group Number Insured Name Patient Relationship to Insured Coverage Start Date Coverage End Date [employer] Medicare [address] [place] [address] [id number] Tameka Nash Self - patient is the insured 4 MEDICAID [address] [place] [address] [id number] Tameka Nash Self - patient is the insured 9 Aetna [facility] Sure [employer] [address] [place] [address] [id number] Tameka Nash Self - patient is the insured 2 4 MEDICARE PART A [address] [place] [phone] [id number] Tameka Nash Self - patient is the insured 4 4 Medical (General) History Medical History History ICD Code 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
--- OUTSIDE RECORDS SUMMARY | 2024-10-17 12:34 | XMS_ITS | Clinical Summary ---
Author Organization [facility] Address [address], [facility] [address] [place] [address] Phone Care Team Providers Care Biodiesel Plant Manager Name Role Phone Barbara Jackman APRN, GUEST SERVICE TEAM LEADER Primary Care Provider Fabian Lane MD Unavailable [phone] Anastasia Reaves MD Unavailable [phone] Allergies Active Allergy Reactions Criticality Noted [...] naloxone HCl (Narcan) 4 MG/0.1ML Liquid 1 E[place] by Nasal route. 03/14/20 24 Active lubiprostone (AMITIZA) 8 MCG Capsule Take 8 mcg by mouth. 12/22/19 24 Active HYDROcodone-gavi taminophen (NORCO) 10-325 MG Tablet Take 1 Tablet by mouth. 02/27/20 025 Discontin ued(Med List Clean Up) dicyclomine (BENTYL) 20 MG Tablet TK 1 T PO UP TO QID 04/05/20 025 Discontin ued(Med List Clean Up) naloxone HCl (Narcan) 4 MG/0.1ML Liquid 1 Everson by Nasal route. 02/01/20 025 Discontin ued(Med [...] Description 10/05/2024 Telephone [facility] [address] [phone] MD 09/29/2024 10:35 AM CDT Lab [facility] [address] [phone] Lab, [facility] Iron deficiency anemia, unspecified iron deficiency anemia type; Ductal carcinoma in situ (DCIS) of right breast; Vitamin B12 deficiency; Folic acid deficiency 09/29/2024 10:00 AM CDT Office Visit [facility] [address] [phone] Paula Peter, DIGITAL COMMUNICATIONS MANAGER, GUEST SERVICE TEAM LEADER Iron deficiency anemia, unspecified iron deficiency anemia type (Primary Dx); Ductal carcinoma in situ (DCIS) of right breast; Vitamin B12 deficiency; Folic acid deficiency; Breast pain, left 09/29/2024 Results Follow-Up [facility] [address] [phone] Paula Peter, DIGITAL COMMUNICATIONS MANAGER, GUEST SERVICE TEAM LEADER 09/29/2024 Telephone [facility] [address] [phone] Paula Peter, DIGITAL COMMUNICATIONS MANAGER, GUEST SERVICE TEAM LEADER 09/29/2024 Travel from Last 3 Months Immunizations [...] CDT Office Visit [facility] [address] [phone] MD [address] [place] [address] [place] [id number] Health Maintenance Due Date Last Done Comments [...] IRON 90 50 - 212 ug/dL [facility] UIBC 225 155 - 355 ug/dL [facility] TIBC 315 261 - 478 ug/dl [facility] % Saturation 29 20 - 50 % [facility] 09/29/2024 10:3 7 AM CDT Narrative [facility] - 09/29/2024 11:50 AM CDT Release to patient->Immediate us Paula Peter APRN, GUEST SERVICE TEAM LEADER LAB SEND OUTS F inal Result [facility] [address] [place] [address], [place] [phone] * CBC WITH AUTO DIFF [place] (09/29/2024 10:37 AM CDT) WBC 8.8 4.0 - 10.0 10*3/uL [facility] HGB 14.3 11.2 - 15.7 g/dL [facility] HCT 41.7 34.1 - 44.9 % [facility] PLT 263 163 - 369 10*3/uL [facility] MPV 10.4 9.4 - 12.4 fL [facility] RBC 4.75 3.93 - 5.22 10*6/uL [facility] MCV 88 79 - 95 fL [facility] MCH 30.1 25.6 - 32.2 pg [facility] MCHC 34.3 32.2 - 36.5 g/dL [facility] RDW 12.4 11.6 - 14.4 % [facility] Neutrophils % 62.4 36.0 - 66.0 % [facility] Lymphocytes % 24.9 19.0 - 40.0 % [facility] Monocytes % 10.6 4.1 - 12.1 % [facility] Eosinophils % 1.1 0.0 - 3.5 % [facility] Basophils % 0.8 0.0 - 1.0 % [facility] Absolute Neutrophils 5.5 1.4 - 6.6 10*3/uL [facility] Absolute Lymphocytes 2.2 0.8 - 4.0 10*3/uL [facility] Absolute Monocytes 0.9 0.2 - 1.2 10*3/uL [facility] Absolute Eosinophils 0.1 0.0 - 0.4 10*3/uL [facility] Absolute Basophils 0.1 0.0 - 0.1 10*3/uL [facility] 09/29/2024 10:3 7 AM CDT Paula Peter DIGITAL COMMUNICATIONS MANAGER, GUEST SERVICE TEAM LEADER LAB SEND OUTS F inal Result [facility] [address] [phone] * (ABNORMAL) VITAMIN B12 (09/29/2024 10:37 AM CDT) Vitamin B12 1,472(H) 180 - 914 pg/mL [facility] Blood 09/29/2024 10:3 7 AM CDT Narrative [facility] - 09/30/2024 2:40 PM CDT Release to patient->Immediate Paula Peter DIGITAL COMMUNICATIONS MANAGER, GUEST SERVICE TEAM LEADER CHEMISTRY ORDERAB LES Final Result Performing Organization Address [facility] Co de Phone Number [facility] [place] [address], * FOLIC ACID (FOLATE) (09/29/2024 10:37 AM CDT) Folate 7.37 >=5.90 ng/mL [facility] Blood 09/29/2024 10:3 7 AM CDT Narrative [facility] - 09/30/2024 2:40 PM CDT Release to patient->Immediate IS THE PATIENT REQUIRED TO BE FASTING FOR 12 HOURS?->No Paula Peter DIGITAL COMMUNICATIONS MANAGER, GUEST SERVICE TEAM LEADER CHEMISTRY ORDERAB LES Final Result Performing Organization Address [facility] Co de Phone Number [facility] [place] [address], [place] [phone] * FERRITIN (09/29/2024 10:37 AM CDT) Ferritin 70 11 - 307 ng/mL [facility] Blood 09/29/2024 10:3 7 AM CDT Narrative [facility] - 09/30/2024 2:40 PM CDT Release to patient->Immediate Paula Peter DIGITAL COMMUNICATIONS MANAGER, GUEST SERVICE TEAM LEADER CHEMISTRY ORDERAB LES Final Result Performing Organization Address [facility] Co de Phone Number [facility] [place] [address], [place] [phone] * (ABNORMAL) CMP (COMPREHENSIVE METABOLIC PANEL) (09/29/2024 10:37 AM CDT) Glucose 87 70 - 105 mg/dL [facility] Blood Urea Nitrogen 4(L) 7 - 25 mg/dL [facility] Creatinine 0.8 0.6 - 1.2 mg/dL [facility] Sodium 129(L) 136 - 145 mEq/L [facility] Potassium 3.4(L) 3.5 - 5.1 mEq/L [facility] Chloride 97(L) 98 - 107 mEq/L [facility] Bicarbonate 30 21 - 31 mEq/L [facility] Total Bilirubin 0.5 0.3 - 1.0 mg/dL [facility] Alk. Phosphatase 110(H) 34 - 104 U/L [facility] Aspartate Aminotransferase 13 13 - 39 U/L [...] [facility] EGFR 90 >60 ml/min/1. 73m2 [facility] Comment: This eGFR is calculated using 2020 CKD-EPI Creatinine equation without race modifier based on the NKF-ASN task force recommendations Equation: dTOR=014*min(SCr/k,1)a*max(SCr/k,1)-1.200*0.9938Age*1.012 (if female), where SCr is serum creatinine, k is 0.7 for females and 0.9 for males, and a is -0.241 for females and -0.302 for males Blood 09/29/2024 10:3 7 AM CDT Narrative [facility] - 09/29/2024 11:52 AM CDT Release to patient->Immediate IS THE PATIENT REQUIRED TO BE FASTING FOR 8 HOURS?->No us Paula Peter DIGITAL COMMUNICATIONS MANAGER, GUEST SERVICE TEAM LEADER CHEMISTRY ORDERAB LES Final Result [facility] [place] [address], from Last 3 Months Insurance MEDICAID [place] MEDICARE C AET Care Teams Biodiesel Plant Manager Relationship Specialty Start Date End Date Barbara Jackman, DIGITAL COMMUNICATIONS MANAGER, GUEST SERVICE TEAM LEADER [address] [place] [id number] PCP - General Internal Medicine 10/07/[address] MD [address] [place] [phone] Consulting Physician Oncology 10/07/21 Anastasia Reaves MD [address] [facility] [address] [place] [address] Internal Medicine 9/14/23
--- OUTSIDE RECORDS SUMMARY | 2024-10-17 12:34 | XMS_ITS | Clinical Summary ---
Author Organization [facility] Address [facility] [place] [address] Care Team Providers Care Brim Flexer Name Role Phone Barbara Jackman NP Primary Care Provider [phone] Allergies Active Allergy Reactions Criticality Noted Date [...] (01/02/2020): Added automatically from request for surgery [id number] Cyst of right breast 09/23/2019 Overview (09/23/2019): Added automatically from request for surgery [id number] Dysuria 07/13/2019 Urinary problem 07/13/2019 Numbness of [...] on file Legal Sex Female 6:58 PM CLINICAL PRACTITIONER Gender Identity Not on file Sexual Orientation [...] 06/07/2028 06/07/2018 Medical Devices Implanted Type Area Machine Ii Cutter Device Identifier Shelf Expiration Date Model / Serial / Lot [employer] [id number] Alloderm Select 16x6cm Allograft Regenerative Thk.4-1.6mm Medium - [id number] - [id number] Implanted:Qty: 1 on 10/17/2019 by Maxwell Kelsey MD at [facility] Left: Breast [employer] 04/18/2021 [id number] / [id number] / [id number] [employer] [id number] Alloderm Select 16x6cm Allograft Regenerative Thk.4-1.6mm Medium - [id number]$ - [id number] Implanted:Qty: 1 on 10/17/2019 by Maxwell Kelsey MD at [facility] Right: Breast [employer] 04/18/2021 [id number] / [id number] / [id number] [employer] [id number]-11-[id number] Implant Mammary Natrelle Te Smooth 680o-Vr-18-T With Fourte - [id number] - [id number] Implanted:Qty: 1 on 10/17/2019 by Maxwell Kelsey MD at [facility] Right: Breast [employer] [id number] 04/18/2024 133S-MX-15 -T / [id number] / [employer] 562j-[id number]-18-T Implant Mammary Natrelle Te Smooth 979f-Kz-80-T With Fourte - [id number] - [id number] Implanted:Qty: 1 on 10/17/2019 by Maxwell Kelsey MD at [facility] Left: Breast [employer] [id number] 11/30/2023 133S-MX-15 -T / [id number] / [employer] Ssx-800 Natrelle Inspira Smooth Xfull Profile Implant 800cc Breast - [id number] - [id number] Implanted:Qty: 1 on 01/30/2020 by Maxwell Kelsey MD at [facility] Right: Breast [employer] [id number] 11/10/2023 SSX-800 / [id number] / [id number] [employer] Ssx-800 Natrelle Inspira Smooth Xfull Profile Implant 800cc Breast - [id number] - [id number] Implanted:Qty: 1 on 01/30/2020 by Maxwell Kelsey MD at [facility] Left: Breast [employer] [id number] 06/25/2024 SSX-800 / [id number] / [id number] Insurance [employer] MEDICARE GOLD ID[facility] GOLD REF [place] [employer] [address] [place] [facility] Advance Directives For more information, please contact: [phone] Documents on File Type Date Recorded Patient Loss Prevention Specialist Expl anation ADVANCE DIRECTIVE 09/07/2019 8:37 AM Power of Transfer Car Operator Drier-Medical Care Teams Brim Flexer Relationship Specialty Start Date End Date Barbara Jackman NP [address] [place] [id number] PCP - General Nurse Practitioner 05/04/19
== END 2024-10-17 10:59 | disposition home or self-care (01) ==
DX: D05.11 Intraductal carcinoma in situ of right breast (principal); R91.1 Solitary pulmonary nodule
CPT/HCPCS: 71260; Q9967